=== PATIENT | female | born 1980 | race Caucasian/White ===

== ENCOUNTER 2023-01-19 18:48 | Emergency (ER) | payer OTHER, SELFPAY ==
[2023-01-19 18:53] VITALS: BP 160/110; PULSE 111; RESP 20; TEMP 36.8; O2SAT 97; BMI 50.0
[2023-01-19 19:27] LABS: Bilirubin Urine NEGATIVE (NEGATIVE); Blood Urine SMALL (NEGATIVE); Clarity Urine CLEAR (CLEAR); Color Urine LT. YELLOW (YELLOW); Glucose Urine UA NEGATIVE (NEGATIVE); Ketones Urine NEGATIVE (NEGATIVE); Leukocyte Esterase Urine NEGATIVE (NEGATIVE); Nitrite Urine NEGATIVE (NEGATIVE); Protein Urine TRACE mg/dL (NEG/TRACE); Urobilinogen Urine 0.2 EU/dL (0.2-1.0)
[2023-01-19 19:29] LABS: Basophils Absolute Auto 0.1 10^3/uL (0.0-0.1); Basophils Percent Auto 0.7 % (0.2-2.0); Eosinophils Absolute Auto 0.2 10^3/uL (0.0-0.7); Eosinophils Percent Auto 1.6 % (0.9-7.0); Hematocrit 39.3 % (36.0-48.0); Immature Granulocytes Abs Auto 0.03 10^3/uL (0.00-0.03); Immature Granulocytes Pct Auto 0.3 % (0.0-0.5); Lymphocytes Absolute Auto 2.1 10^3/uL (1.2-3.8); Lymphocytes Percent Auto 20.2 % (20.5-60.0); Mean Corpuscular HGB Conc 33.1 g/dL (29.9-35.2); Mean Corpuscular Hemoglobin 30.9 pg (26.7-34.0); Mean Corpuscular Volume 93.3 fL (81.0-99.0); Mean Platelet Volume 10.1 fL (9.5-13.5); Monocytes Absolute Auto 1.1 10^3/uL (0.3-0.8); Neutrophils Absolute Auto 7.2 10^3/uL (1.4-6.5); Neutrophils Percent Auto 67.2 % (43.0-75.0); Platelet Count 263 10^3/uL (150-450); Red Blood Count 4.21 10^6/uL (4.20-5.40); Red Cell Distribution Width 12.2 % (11.0-15.0); White Blood Count 10.6 10^3/uL (4.0-11.0)
--- NOTE | 2023-01-19 19:33 | CT_ITS ---
[facility] [id number] Patient Name: ZAYRA LYNN MRN: [id number] date: 1980 Sex: F Assigned Patient Location: ER Current Patient Location: ER Accession/Order Number: [id number] Exam Date: 01/19/2023 20:15 Report Date: 01/19/2023 21:09 At the request of: ARCELIA VARGAS Procedure: CT abdomen pelvis wo con CT ABDOMEN/PELVIS WITHOUT IV CONTRAST. INDICATION: left back side pain COMPARISON: There are no other studies available for comparison. TECHNIQUE: Contiguous axial images were obtained from the lung bases to the pelvic floor without intravenous or oral contrast. Coronal and sagittal reformations are provided. FINDINGS: LOWER LUNGS: Clear. LIVER/BILIARY TREE: No discrete lesion. No intrahepatic ductal dilatation. GALLBLADDER: No significant gallbladder wall thickening. No radiopaque stone. CBD: Normal CBD. SPLEEN: Normal in size. PANCREAS: No appreciable peripancreatic fluid. No pancreatic ductal dilatation. No discrete lesion. ADRENALS: Normal. KIDNEYS: No hydronephrosis. There are bilateral parapelvic cysts. No radiopaque calculus. STOMACH AND BOWEL: Stomach is unremarkable. No dilated bowel loops. No bowel wall thickening. APPENDIX: Normal appendix. PERITONEAL CAVITY: No fluid. No fat stranding. ABDOMINAL WALL: No subcutaneous stranding. No subcutaneous fluid collection. LYMPH NODES: No mesenteric or retroperitoneal lymphadenopathy by CT criteria. ABDOMINAL AORTA: No aneurysm. PELVIS: No acute abnormality. MUSCULOSKELETAL: No acute osseous abnormality. CT/CT abdomen pelvis wo con IMPRESSION: No acute abnormality in the abdomen or pelvis. Electronically authenticated by: LETICIA WEISS Date: 01/19/2023 21:09
[2023-01-19 19:36] LABS: Urine Microscopic Indicated YES
--- NOTE | 2023-01-19 19:37 | ED_ITS ---
HPI - General Adult General Chief complaint: Abdominal Pain Stated complaint: BACK PAIN Time Seen by Provider: 01/19/23 19:21 Source: patient Mode of arrival: walk-in Limitations: no limitations History of Present Illness HPI narrative: Patient is a 48-year-old female who is presenting to the Emergency Room today with chief complaint of severe left lower back pain that radiating to her left flank into left lower quadrant and also down into her left hip and down to left lateral thigh. Patient has a history kidney stone, she passed one kidney stone back in 2014. Patient has had nausea but no vomiting. Patient's pain started getting worse yesterday but much worse this morning. Patient's ex- is at bedside. Patient's had no heavy lifting, twisting or turning over the weekend. She has no fever chills. No chest pain or shortness of breath. Patient looks very uncomfortable. Patient was brought to the Emergency Room by her ex-, he is driving home. Patient's having urinary frequency and urgency, no burning. No vaginal bleeding. She had a hysterectomy. Patient has no other acute complaints at this time. Patient cannot get a comfortable position. . All systems are negative except as noted/marked. All systems reviewed and otherwise negative. . Nurses note and vital signs reviewed and patient is not hypoxic. General: The patient appears well and in no apparent distress. Patient is resting comfortably on cart. Patient is not toxic, lethargic, or listless Skin: Warm, dry, no pallor noted. There is no rash noted. No petechiae, purpura. Head: Normocephalic, atraumatic Eye: Normal conjunctiva, no drainage, EOMI. PERRL Ears, Nose, Mouth, and Throat: oral mucosa is moist. Nares patent. Mouth without vesicles. Cardiovascular: Regular Rate and Rhythm, no murmur, gallop, rub Respiratory: Patient is in no distress, no accessory muscle use, lungs are clear to auscultation, no wheezing, rales or rhonchi Back: Patient had moderate to severe tenderness to palpation to the soft tissue to left paralumbar area, no true CVA tenderness palpation, moderate tenderness to palpation to left piriformis muscle, Patient has no right-sided paralumbar tenderness to palpation, the rest of her back is non-tender, no CVA tenderness bilaterally to percussion. No CT LS midline pain. Negative straight leg raising test bilateral. Patient has full range of motion of her left hip without causin g any left lower back pain. GI: soft, obese, Mild left lower quadrant tenderness to palpation, moderate left flank tenderness to palpation, otherwise no peritoneal signs, no other tenderness to palpation, no masses appreciated. No rebound, guarding, or rigidity noted. No flank pain bilateral, No distention. Musculoskeletal: Patient has full range of motion of all of the extremities, no motor, sensory, or focal neurological deficits Neurological: A&O x3, normal speech. Psychiatric: Cooperative Related Data Home Medications Medication Instructions Recorded Confirmed No Known Home Medications 01/19/23 01/19/23 Previous Rx's Medication Instructions Recorded hydrocodone 5 mg-acetaminophen 325 1 tab PO Q4H PRN pain #10 tabs 01/19/23 mg tablet methocarbamol 500 mg tablet 500 mg PO Q8H PRN muscle pain #10 01/19/23 tabs methylprednisolone 4 mg tablets in 4 mg PO DAILY 7 days #7 ea 01/19/23 a dose pack (Medrol (Balwinder)) naproxen 500 mg tablet,delayed 500 mg PO BID #20 tabs 01/19/23 release (EC-Naprosyn) Allergies Allergy/AdvReac Type Severity Reaction Status Date / Time Penicillins Allergy Severe icthy Verified 01/19/23 18:53 Sulfa (Sulfonamide Allergy Severe Anaphylaxis Verified 01/19/23 18:53 Antibiotics) PFSH PFS Social History Smoking status: Light tobacco smoker Exam Constitutional Vital Signs, click to edit/add: Last Vital Signs Temp 98.3 F 01/19/23 18:53 Pulse 85 01/19/23 20:46 Resp 20 01/19/23 18:53 BP 123/85 01/19/23 20:30 Pulse Ox 94 L 01/19/23 21:16 O2 Del Method Room Air 01/19/23 21:16 Course Vital Signs Vital signs: Vital Signs Temperature 98.3 F 01/19/23 18:53 Pulse Rate 111 H 01/19/23 18:53 Respiratory Rate 20 01/19/23 18:53 Blood Pressure 160/110 H 01/19/23 18:53 Pulse Oximetry 97 01/19/23 18:53 Oxygen Delivery Method Room Air 01/19/23 18:53 Temperature 98.3 F 01/19/23 18:53 Pulse Rate 85 11/13/23 20:46 Respiratory Rate 20 01/19/23 18:53 Blood Pressure 123/85 01/19/23 20:30 Pulse Oximetry 94 L 01/19/23 21:16 Oxygen Delivery Method Room Air 01/19/23 21:16 Medical Decision Making MDM Narrative Medical decision making narrative: Patient's urine, lab work, CT of the abdomen and pelvis showed no acute findings. Patient had some mild hypoxia after 1 mg of Dilaudid was given. Patient and her ex- at bedside state that she has been sensitive to narcotics in the past. However for patient's weight, she was still given a low dose of Dilaudid. She was placed on 2 L of nasal cannula, continuous pulse oximetry until she was discharged. Patient recovered, and was normal over 94 percent at discharge. Patient will be sent home with Naprosyn, Firestone, Robaxin, Medrol Dosepak. Patient will follow up with PCP for further evaluation and referral to physical therapy if needed. Education on lumbar pain, sciatica, lumbar radiculopathy was done at bedside and on discharge paperwork. No urinary tract infection, kidney stone, pyelonephritis, or any other acute findings on CT. Patient has had lumbar pain and sciatica pain in the past. Patient's pain has improved. Education on sciatica and lumbar radiculopathy has been done several times during history and physical and at discharge. Lab Data Lab results reviewed: Yes I reviewed the patient's lab results Labs: Lab Results 01/19/23 01/19/23 Range/Units 19:00 19:20 WBC 10.6 (4.0-11.0) 10^3/uL RBC 4.21 (4.20-5.40) 10^6/uL Hgb 13.0 (12.0-16.0) g/dL Hct 39.3 (36.0-48.0) % MCV 93.3 (81.0-99.0) fL MCH 30.9 (26.7-34.0) pg MCHC 33.1 (29.9-35.2) g/dL RDW 12.2 (11.0-15.0) % Plt Count 263 (150-450) 10^3/uL MPV 10.1 (9.5-13.5) fL Neut % (Auto) 67.2 (43.0-75.0) % Lymph % (Auto) 20.2 L (20.5-60.0) % [place] % (Auto) 10.0 (1.7-12.0) % Eos % (Auto) 1.6 (0.9-7.0) % Baso % (Auto) 0.7 (0.2-2.0) % Neut # (Auto) 7.2 H (1.4-6.5) 10^3/uL Lymph # (Auto) 2.1 (1.2-3.8) 10^3/uL [place] # (Auto) 1.1 H (0.3-0.8) 10^3/uL Eos # (Auto) 0.2 (0.0-0.7) 10^3/uL Baso # (Auto) 0.1 (0.0-0.1) 10^3/uL Abs Immat Gran (auto) 0.03 (0.00-0.03) 10^3/uL Imm/Tot Granulo (auto) 0.3 (0.0-0.5) % Sodium 138 (136-145) mmol/L Potassium 3.6 (3.5-5.1) mmol/L Chloride 102 (98-107) mmol/L Carbon Dioxide 29.2 (21.0-32.0) mmol/L Anion Gap 10.4 BUN 10.0 (7.0-18.0) mg/dL Creatinine 0.97 (0.55-1.02) mg/dL Est GFR ( Amer) >60 (>=60) Est GFR (Non-Af Amer) >60 (>=60) BUN/Creatinine Ratio 10.3 Glucose 117 H (74-106) mg/dL Calcium 8.7 (8.5-10.1) mg/dL Total Bilirubin 0.6 (0.2-1.0) mg/dL AST 13 L (15-37) U/L ALT 34 (14-59) U/L Alkaline Phosphatase 66 (46-116) U/L Total Protein 7.6 (6.4-8.2) g/dL Albumin 3.5 (3.4-5.0) g/dL Globulin 4.1 g/dL Albumin/Globulin Ratio 0.9 Lipase 19.0 (16.0-77.0) U/L Urine Color Lt. yellow (YELLOW) Urine Clarity Clear (CLEAR) Urine pH 6.0 (5.0-9.0) Ur Specific [place] 1.010 (1.005-1.025) Urine Protein Trace (NEG/TRACE) mg/dL Urine Glucose (UA) Negative (NEGATIVE) mg/dL Urine Ketones Negative (NEGATIVE) mg/dL Urine Occult Blood Small A (NEGATIVE) Urine Nitrite Negative (NEGATIVE) Urine Bilirubin Negative (NEGATIVE) Urine Urobilinogen 0.2 (0.2-1.0) EU/dL Ur Leukocyte Esterase Negative (NEGATIVE) Urine RBC 0-2 (0-2) #/HPF Urine WBC 0-2 A (NONE SEEN) #/HPF Ur Squamous Epith Cells Few A (NONE/RARE) #/LPF Urine Crystals None seen (None Seen) #/HPF Urine Bacteria None seen (NONE SEEN) #/HPF Urine Casts None seen (NONE SEEN) #/LPF Urine Mucus None seen (NONE SEEN) Ur Culture Indicated? No Urine HCG, Qual Negative (NEGATIVE) Discharge Plan Discharge Chief Complaint: Abdominal Pain Clinical Impression: Acute left lumbar radiculopathy, Lumbar pain with radiation down left leg Patient Disposition: Home, Self-Care Condition: Fair Prescriptions / Home Meds: New hydrocodone-acetaminophen 5-325 mg tablet 1 tab PO Q4H PRN (Reason: pain) Qty: 10 0RF methocarbamol 500 mg tablet 500 mg PO Q8H PRN (Reason: muscle pain) Qty: 10 0RF methylprednisolone [Medrol (Balwinder)] 4 mg tablets,dose pack 4 mg PO DAILY 7 Days Qty: 7 0RF Rx Instructions: as directed naproxen [EC-Naprosyn] 500 mg tablet,delayed release (DR/EC) 500 mg PO BID Qty: 20 0RF No Action No Known Home Medications Instructions: Sciatica (ED), Lumbar Radiculopathy (ED), Lower Back Exercises (ED) Additional Instructions: Use ice 20 minutes on, 20 minutes off. Do not use heat. Sciatica lumbar stretching exercises as discussed at bedside and on discharge paperwork Start steroids tomorrow, finished the course. Use pain medication and muscle relaxers as needed. Ice and stretching will help. Your PCP may have referred to physical therapy as well. critical care physician can help as well. Stand Alone Forms: Portal Instructions Referrals: Physician,Non-Staff, MD [Primary Care Provider] - 1 week
[2023-01-19 19:40] LABS: Bacteria Urine NONE SEEN #/HPF (NONE SEEN); Crystals Seen? None Seen #/HPF (None Seen); Mucus Urine NONE SEEN (NONE SEEN); RBC Urine 0-2 #/HPF (0-2); Squamous Epithelial Cell Urine FEW #/LPF (NONE/RARE); WBC Urine 0-2 #/HPF (NONE SEEN)
[2023-01-19 19:41] LABS: Cast Seen? NONE SEEN #/LPF (NONE SEEN); HCG Qualitative Urine* NEGATIVE (NEGATIVE); Urine Culture Indicated NO
[2023-01-19 19:43] LABS: Alanine Aminotransferase 34 U/L (14-59); Albumin Globulin Ratio 0.9; Albumin Level 3.5 g/dL (3.4-5.0); Alkaline Phosphatase 66 U/L (46-116); Anion Gap 10.4; Aspartate Amino Transferase 13 U/L (15-37); BUN Creatinine Ratio 10.3; Bilirubin Total 0.6 mg/dL (0.2-1.0); Calcium 8.7 mg/dL (8.5-10.1); Carbon Dioxide 29.2 mmol/L (21.0-32.0); Chloride 102 mmol/L (98-107); Estimated GFR (African America >60 (>=60); Estimated GFR (Non-African Ame >60 (>=60); Globulin 4.1 g/dL; Glucose 117 mg/dL (74-106); Potassium 3.6 mmol/L (3.5-5.1); Sodium 138 mmol/L (136-145); Total Protein 7.6 g/dL (6.4-8.2)
[2023-01-19] MEDS: 0.9 % SODIUM CHLORIDE 1,000 ML 999 ML IV (19:52)
[2023-01-19] MEDS: ONDANSETRON PF 4 MG/2 ML VIAL IV (19:52)
[2023-01-19] MEDS: HYDROMORPHONE HCL 1 MG/ML CARTRIDGE IV (19:52)
[2023-01-19] MEDS: KETOROLAC TROMETHAMINE 30 MG/ML VIAL 15 MG IVP (19:52)
[2023-01-19 20:02] VITALS: BP 115/74; O2SAT 97
[2023-01-19 20:15] VITALS: O2SAT 96
[2023-01-19 20:30] VITALS: BP 123/85; O2SAT 96
--- NOTE | 2023-01-19 20:35 | PC.NURSE ---
patient o2 saturation dropped to 84% following pain medication administration. patient placed on 2L nc and quickly recovered to 96%
[2023-01-19 20:46] VITALS: PULSE 85
[2023-01-19 21:16] VITALS: O2SAT 94
== END 2023-01-19 22:00 | disposition home or self-care (01) ==
PROVIDERS: Emergency Provider Emergency Medicine
DX: M54.16 Radiculopathy, lumbar region (principal); Z90.710 Acquired absence of both cervix and uterus; F17.210 Nicotine dependence, cigarettes, uncomplicated
CPT/HCPCS: 36415; 74176; 80053; 81001; 83690; 84703; 85025; 96374; 96375; 99285; J1170

== ENCOUNTER 2024-05-06 15:45 | Emergency (ER) | payer OTHER, SELFPAY ==
[2024-05-06 15:50] VITALS: BP 120/82; PULSE 96; TEMP 38.3; O2SAT 95; BMI 57.6
--- OUTSIDE RECORDS SUMMARY | 2024-05-06 15:53 | XMS_ITS | CCD ---
Author Organization [facility] Inform ion Partnership [facility] Care Team Providers Care [employer] Name Role Phone JOHNNY JEREZ Consulting Unavailable JOHNNY JEREZ Attending Unavailable JOHNNY JEREZ Admitting Unavailable DO Tammy Patel Primary Care Provider JANA Esposito Attending Provider Yovana Esposito Admitting Unavailable Yovana Esposito Attending Unavailable Tammy Patel Primary Care Unavailable Jorge José DO, George Robert Primary Care Provi jeannie Henna Valadez DO Unavailable Jag Patel DO Primary Care Provider YOVANA ESPOSITO Attending Unavailable YOVANA ESPOSITO Referring Unavailable JAG PATLE Referring Unavailable JAQUELIN MATA Attending Unavailable JAG PATEL Referring Unavailable YOVANA ESPOSITO Attending Unavailable Allergies Allergy Classification Reported Allergen(s) Allergy Type Date of Onset Reaction(s) Facility (2 sources) HYDROmorphone; Translations: [hydromorphone] Drug Allergy 9 Dizziness [facility] (2 sources) sulfiSOXAZOLE; Translations: [sulfisoxazole] Drug Allergy 9 Anaphylaxis [facility] (3 sources) Sulfonamides (Antibiotic); Translations: [Sulfa (Sulfonamide Antibiotics)] Allergy to substance [address] [facility] (2 sources) erythromycin base; Translations: [erythromycin base] Allergy to substance 9 [facility] (10 sources) Latex Drug Allergy 0 [facility] (12 sources) Sulfonamides (Antibiotic) Propensity to adverse reactions 3 [facility] Work Phone: (9 sources) Penicillins Propensity to adverse reactions 5 GI intolerance [facility] Medications Current Medications Medication Drug Class(es) Dates Sig (Normalized) Sig (Original) acetaminophen 325 mg / HYDROcodone bitartrate 5 mg oral tablet (1 source) Opioid Agonist Start: 01-13-2019 take 1 tablet by mouth every four to six hours Hydrocodone-Acetamin ophen (Merced) 5-325 mg Tablet Active 1 TAB PO EVERY 4-6 HOURS 7 3 January 13, 2019 12:00am amoxicillin 875 mg / clavulanate 125 mg oral tablet (5 sources) Penicillin-class Antibacterial Start: 03-18-2024 End: 03-28-2024 take 1 tablet by mouth in the morning amoxicillin-clavulan ate (Augmentin) 875-125 MG tablet Indications: Acute left otitis media Take 1 tablet (875 mg) by mouth in the morning and 1 tablet (875 mg) before bedtime. Do all this for 10 days. 20 tablet 03/18/2024 03/28/2024 Active atorvastatin 20 mg oral tablet (9 sources) HMG-CoA Reductase Inhibitor Start: 03-21-2024 take 1 tablet by mouth once daily atorvastatin (Lipitor) 20 MG tablet Indications: Mixed hyperlipidemia (CMS/HCC) Take 1 tablet (20 mg) by mouth Daily 30 tablet 11 03/21/2024 Active cyclobenzaprine hydrochloride 10 mg oral tablet (2 sources) Muscle Relaxant Start: 05-05-2024 cyclobenzaprine (Flexeril) 10 MG tablet Indications: Spasm Take 1 tablet (10 mg) by mouth 3 (three) times a day as needed for muscle spasms (q8hrs) 20 tablet 05/05/2024 Active Start: 08-24-2019 take 1 tablet by julian th every eight hours as needed cyclobenzaprine (FLEXERIL) 5 mg tablet Take 1 tablet by mouth three times daily as needed. 0 08/24/2019 Active Comment on above: Take 1 tablet by julian th three times daily as needed. furosemide 20 mg oral tablet (4 sources) Loop Diuretic Start: 5 furosemide (Lasix) 20 MG tablet Indications: Peripheral edema Take 1 tablet (20 mg) by mouth Daily as needed (q24hrs) 20 tablet 05/02/2024 Active levothyroxine sodium 0.075 mg oral tablet (10 sources) l-Thyroxine Start: take 1 tablet by mouth once daily levothyroxine (Synthroid, Levoxyl) 75 MCG tablet Indications: Hyperthyroidism (CMS/HCC) Take 1 tablet (75 mcg) by mouth Daily 30 tablet 3 05/05/2024 Active Start: 05-05-2024 take 1 tablet by julian th once daily levothyroxine (Synthroid, Levoxyl) 75 MCG tablet Indications: Hyperthyroidism (CMS/HCC) Take 1 tablet (75 mcg) by mouth Daily 30 tablet 3 05/05/2024 Active Start: 03-21-2024 End: 05-05-2024 take 1 tablet by mouth once daily levothyroxine (Synthroid, Levoxyl) 50 MCG tablet Indications: Hyperthyroidism (CMS/HCC) Take 1 tablet (50 mcg) by mouth Daily 30 tablet 11 03/21/2024 05/05/2024 Discontinued (Reorder) tamsulosin hydrochloride 0.4 mg oral capsule (1 source) alpha-Adrenergic Radhika Start: 01-13-2019 take 1 capsule by mouth once daily Tamsulosin (Flomax) 0.4 mg capsule Active 0.4 MG PO Daily January 13, 2019 12:00am Completed/Discontinued Medications Medication Drug Class(es) Dates Sig (Normalized) Sig (Original) azithromycin 250 mg oral tablet (7 sources) Macrolide Antimicrobial Start: 03-21-2024 End: 05-02-2024 azithromycin (Zithromax) 250 MG tablet Indications: Acute left otitis media Take 2 tablets on day 1, then take 1 tablet for 4 days by mouth 6 tablet 03/21/2024 05/02/2024 Discontinued 12 hr dextromethorphan hydrobromide 60 mg / guaiFENesin 1200 mg extended release oral tablet (3 sources) Uncompetitive F-qygjke-H-aspartat e Receptor Antagonist, Sigma-1 Agonist Start: 02-11-2023 End: 03-18-2024 dextromethorphan- guaiFENesin (MUCINEX DM MAX STRENGTH) 60-1200 MG 12 hr tablet Indications: URI with cough and congestion Take 1 tablet by mouth every 12 (twelve) hours if needed (BID) 20 tablet 02/11/2023 03/18/2024 Discontinued (Therapy completed) fluticasone propionate 0.05 mg/actuat metered dose nasal spray (10 sources) Corticosteroid Start: 03-21-2024 End: 05-02-2024 take 1-2 spray(s) nasal route once daily fluticasone (Flonase) 50 MCG/ACT nasal spray Indications: Acute left otitis media Administer 1-2 sprays into each nostril Daily Shake gently. Before first use, prime pump. After use, clean tip and replace cap 16 g 3 03/21/2024 05/02/2024 Discontinued Start: 02-11-2023 End: 03-18-2024 take 1-2 spray(s) nasal route in the morning fluticasone (Flonase) 50 MCG/ACT nasal spray Indications: URI with cough and congestion Administer 1-2 sprays into each nostril in the morning. Shake gently. Before first use, prime pump. After use, clean tip and replace cap. 16 g 02/11/2023 03/18/2024 Discontinued (Therapy completed) ketorolac tromethamine 10 mg oral tablet (1 source) Nonsteroidal Anti-inflammatory Drug, Cyclooxygenase Inhibitor Start: 09-08-2019 take 1 tablet by mouth every eight hours as needed ketorolac (TORADOL) 10 mg tablet Indications: Post-operative state Take 1 tablet by mouth every 8 hours as needed. 15 tablet 0 09/08/2019 Active Comment on above: Take 1 tablet by julian th every 8 hours as needed. methocarbamol 500 mg oral tablet (3 sources) Muscle Relaxant Start: 01-20-2023 End: 03-18-2024 take 1 tablet by mouth every six hours methocarbamol (Robaxin) 500 MG tablet Take 500 mg by mouth every 6 (six) hours 01/20/2023 03/18/2024 Discontinued (Therapy completed) naproxen 500 mg delayed release oral tablet (4 sources) Nonsteroidal Anti-inflammatory Drug Start: 01-20-2023 End: 03-18-2024 take 1 tablet by mouth in the morning naproxen (EC Naprosyn) 500 MG EC tablet Take 500 mg by mouth in the morning and 500 mg before bedtime. 01/20/2023 03/18/2024 Discontinued (Therapy completed) Start: 01-13-2019 take 1 tablet by julian th every twelve hours at mealtime Naproxen (Naprosyn) 500 mg Tablet Active 500 MG PO Q12H January 13, 2019 12:00am administer with food or milk Nirmatrelvir&Ritonavir 300/1 00 (Paxlovid, 300/100,) 20 x 150 MG & 10 x 100MG tablet therapy pack (3 sources) Start: 02-12-2023 End: 03-18-2024 Nirmatrelvir&Ritonavir 300/1 00 (Paxlovid, 300/100,) 20 x 150 MG & 10 x 100MG tablet therapy pack Indications: COVID-19 Take 1 Package by mouth See administration instructions 1 each 02/12/2023 03/18/2024 Discontinued (Therapy completed) Start: 02-12-2023 Nirmatrelvir&R itonavir 300/100 (Paxlovid, 300/100,) 20 x 150 MG & 10 x 100MG tablet therapy pack Indications: COVID-19 Take 1 Package by mouth See administration instructions 1 each 02/12/2023 Active ondansetron 4 mg oral tablet (8 sources) Serotonin-3 Receptor Antagonist Start: 03-21-2024 End: 05-02-2024 take 1 tablet by mouth every eight hours as needed for nausea and vomiting and nausea and nausea ondansetron (Zofran) 4 MG tablet Indications: Nausea Take 1 tablet (4 mg) by mouth every 8 (eight) hours if needed for nausea or vomiting 20 tablet 03/21/2024 05/02/2024 Discontinued Start: 01-13-2019 Ondansetron Ac tive 4 MG PO every 6 to 8 hours January 13, 2019 12:00am predniSONE 20 mg oral tablet (3 sources) Start: 02-11-2023 End: 03-18-2024 predniSONE (Deltasone) 20 MG tablet Indications: URI with cough and congestion Take 3 tablets for 2 days, then take 2 tablets for 2 days, then take 1 tablet for 2 days by mouth 12 tablet 02/11/2023 03/18/2024 Discontinued (Therapy completed) pseudoephedrine hydrochloride 60 mg oral tablet (7 sources) alpha-Adrener gic Agonist Start: 03-21-2024 End: 05-02-2024 take 1 tablet by mouth every six hours for congestion pseudoephedrine (Sudafed) 60 MG tablet Indications: Acute left otitis media Take 1 tablet (60 mg) by mouth every 6 (six) hours if needed for congestion 30 tablet 03/21/2024 05/02/2024 Discontinued Problems Problem Classification Problem Date Documented Da te Episodic/Chronic Calculus of urinary tract (1 source) Ureteric stone; Translations: [Calculus of ureter] 01-13-2019 Episodic Disorders of lipid metabolism (2 sources) Mixed hyperlipidemia; Translations: [Mixed hyperlipidemia] 03-21-2024 Chronic Immunizations and screening for infectious disease (4 sources) Contact with and (suspected) exposure to other viral communicable diseases; Translations: [CONTCT EXPS OTH VIRL COMMUNICABL DZ] Onset: 01-13-2020 Episodic Nausea and vomiting (2 sources) Nausea; Translations: [Nausea] 03-21-2024 Episodic Other connective tissue disease (1 source) Spasm; Translations: [Cramp and spasm] 05-05-2024 Episodic Other nutritional; endocrine; and metabolic disorders (1 source) Morbid obesity; Translations: [Morbid (severe) obesity due to excess calories] Onset: 08-24-2019 08-24-2019 Chronic Other nutritional; endocrine; and metabolic disorders (1 source) Body mass index 40+ - severely obese; Translations: [Morbid (severe) obesity due to excess calories] Onset: 10-07-2019 10-07-2019 Chronic Other nutritional; endocrine; and metabolic disorders (2 sources) Weight increased; Translations: [Abnormal weight gain] 03-18-2024 Episodic Other screening for suspected conditions (not mental disorders or infectious disease) (5 sources) Patient encounter status; Translations: [Encounter for screening mammogram for malignant neoplasm of breast] 05-21-2023 Episodic Other upper respiratory infections (3 sources) Acute upper respiratory infection, unspecified; Translations: [Sore throat symptom] Onset: 01-17-2020 03-18-2024 Episodic Otitis media and related conditions (4 sources) Acute left otitis media; Translations: [Otitis media, unspecified, left ear] 03-18-2024 Episodic Residual codes; unclassified (2 sources) Peripheral edema; Translations: [Localized edema] 05-02-2024 Episodic Thyroid disorders (5 sources) Hyperthyroidism; Translations: [Thyrotoxicosis, unspecified without thyrotoxic crisis or storm] 03-21-2024 Chronic Viral infection (1 source) COVID-19; Translations: [COVID-19] Onset: 02-11-2023 Results Test Name Value Interpretation Reference Range Facility Laboratory - Chemistry and C hemistry - challengeon 05-03-2024 Free T4 [Mass/Vol] 0.95 ng/dL 0.82 - 1. 77 ng/dL [facility] TSH Qn 8.28 m[IU]/L High [facility] No Panel Informationon 05-03 Interpretation and review of laboratory results Abnormal [facility] Performed at: 01 - [address] [id number] Car Supervisor: Scout De La Torre PhD, Phone: [phone] [facility] 05-02-2024 US THYROID EXAM: Thyroid Ultrasound. REASON FOR EXAM: Hypothyroidism. TECHNIQUE: Ultrasound of the thyroid and lower neck was performed, with color flow Doppler. COMPARISON: None. FINDINGS: Right lobe: Normal size with heterogeneous parenchymal echogenicity. No evidence of any mass, cyst or shadowing calcification. Left lobe: Normal size with heterogeneous parenchymal echogenicity. No evidence of any mass, cyst or shadowing calcification. Isthmus: Normal size with heterogeneous parenchymal echogenicity. No evidence of any mass, cyst or shadowing calcification. Lymph nodes: Negative for lymphadenopathy. Measurements: Right Lobe: 4.3 x 1.8 x 1.8 cm Left Lobe: 4.6 x 1.4 x 1.7 cm Isthmus: 0.85 cm IMPRESSION: Heterogeneous appearance of the thyroid which may reflect goiter, possibly thyroiditis. No measurable nodules. TI-RADS: 1 RECOMMENDATION: Clinical follow-up. Reference: ACR white paper 2017. Followup: TR3 lesion: Thyroid US at 1, 3 and 5 years. TR4 lesion: Thyroid US at 1, 2, 3 and 5 years. TR5 lesion: Thyroid ultrasound every year for up to 5 years. *This report is generated using voice recognition reporting (PharmaIN). On occasion Krik[employer] erroneously drops words from the report or replaces the spoken word with similar sounding words. Please call with any questions/concerns regarding this report.* Dictated and transcribed 05/03/2024/tm This report has been electronically signed and approved by the interpreting radiologist. Normal Not Available Laboratory - Microbiology an d Antimicrobial susceptibilityon 03-18-2024 SARS-CoV-2 (COVID-19) RNA PAM+probe Ql (Unsp spec) Negative [facility] S. pyogenes Ag Ql (Throat) Negative Negative, None Detected [facility] No Panel Informationon 03-18 FLU A Negative [facility] FLU B Negative [facility] Interpretation and review of laboratory results Normal [facility] Interpretation and review of laboratory results Normal [facility] BI MAMMOGRAM SCREENING TOMOS YNTHESIS BILATERALon 06-26-2023 BI MAMMOGRAM SCREENING TOMOSYNTHESIS BILATERAL This is a summary report. The complete report is available in the patient's medical record. If you cannot access the medical record, please contact the sending organization for a detailed fax or copy. EXAMINATION: BI MAMMOGRAM SCREENING TOMOSYNTHESIS BILATERAL CLINICAL HISTORY:screening for breast cancer COMPARISON: There are no previous mammograms available for comparison. RESULT: Digital mammography and 3D tomosynthesis of bilateral breasts was performed. Density: Almost entirely fatty [1] Typically benign calcifications. There is no suspicious mass, asymmetry, architectural distortion, or calcification IMPRESSION: BIRADS 2 - Benign Follow-up: Routine Screening Mamm Board Certified Radiologists. Accredited by the ACR and FDA. MAMMOGRAPHY IS VERY IMPORTANT TO YOUR HEALTH. THE CITIZEN OF [place] [employer] GUIDELINES RECOMMEND THAT WOMEN 40 YEARS OF AGE AND OLDER SHOULD HAVE A MAMMOGRAM EVERY YEAR. A REMINDER LETTER WILL BE SENT AT THE APPROPRIATE TIME. THIS FACILITY UTILIZES A REMINDER SYSTEM TO ENSURE ALL PATIENTS RECEIVE REMINDER NOTIFICATIONS AT THE APPROPRIATE TIME BASED ON THE RECOMMENDATIONS OF THIS EXAM. THIS INCLUDES REMINDERS FOR ROUTINE SCREENING MAMMOGRAMS, DIAGNOSTIC MAMMOGRAMS IN WHICH THE PATIENT IS ASKED TO RETURN FOR ADDITIONAL VIEWS, OR OTHER BREAST IMAGING INTERVENTIONS WHEN APPROPRIATE. THE PATIENT WILL BE PLACED IN THE APPROPRIATE REMINDER SYSTEM INCLUDING A REMINDER AT THE APPROPRIATE TIME FOR ANY PENDING ADDITIONAL VIEWS. TRANSCRIBED BY: ELECTRONICALLY SIGNED BY: John Ellison MD Normal Not Available [employer] Detectedon 3 [employer] Detected Detected Critically abnormal Not Detecte [facility] Comment on above: Result Comment: This is a duplicate RP2.1 COVID (PCR) result to be used for statistical tracking purpose only. PERFORMED BY: [address] [place] [address] PATHOLOGIST RETAIL LEASING AGENT JIANLAN SUN M.D. Performed By: #### R RANDY PANEL UPP., BIOFIRECOVDET #### [facility] [address] COVID-19 Detected/Not Detect edOrdered By: Yovana Esposito on 02-11-2023 SARS-CoV-2 (COVID-19) RNA PAM+non-probe Ql (Nph) Detected Not Detecte [facility] Comment on above: This is a duplicate RP2.1 COVID (PCR) result to be used for statistical tracking purpose only. Respiratory (Upper) Panel, P CRon 02-11-2023 Respiratory (Upper) Panel, PCR Adenovirus Not detected Bordetella parapertussis Not detected Chlamydia pneumoniae Not detected Coronavirus 229E Not detected Coronavirus HKU1 Not detected Coronavirus NL63 Not detected Coronavirus OC43 Not detected Influenza A Not detected Influenza B Not detected Human Metapneumovirus Not detected Mycoplasma pneumoniae Not detected Parainfluenza Virus 1 Not detected Parainfluenza Virus 2 Not detected Parainfluenza Virus 3 Not detected Parainfluenza Virus 4 Not detected Bordetella pertussis-ptxP Not detected Human Rhino/Enterovirus Not detected Resp. Syncytial Virus Not detected COVID19 Blank Space COVID19 Det Results Detected results will only be called to COVID19 Det Results Providers for the following groups of patients: COVID19 Det Results Pre-Surgical Testing, Emergency Room, and Inpatients. COVID19 Blank Space COVID-19 Detected/Not Detected Detected Blank Space FLUA TEST INCLUDES Influenza A tests for the following clinically FLUA TEST INCLUDES significant subtypes: FLUA TEST INCLUDES - Influenza A FLUA TEST INCLUDES - Influenza A H1 FLUA TEST INCLUDES - Influenza A H1 2009 FLUA TEST INCLUDES - Influenza A H3 Blank Space PERFORMED BY: [facility] [address] [place] [address] PATHOLOGIST RETAIL LEASING AGENT MICHELLE MANN M.D. Normal [facility] Comment on above: Performed By: #### R RANDY PANEL UPP., BIOFIRECOVDET #### [facility] [address] Respiratory pathogens DNA an d RNA panel - Nasopharynx by PAM with non-probe detectionOrdered By: Yovana Esposito on 02-11-2023 Respiratory pathogens DNA and RNA panel PAM+non-probe (Nph) [facility] COVID-19 PCRon 01-14-2020 SARS-CoV-2, PAM Not Detected Normal Not Detected [facility] Comment on above: Result Comment: This nucleic acid amplification test was developed and its performance characteristics determined by [employer]. Nucleic acid amplification tests include PCR and TMA. This test has not been FDA cleared or approved. This test has been authorized by FDA under an Emergency Use Authorization (EUA). This test is only authorized for the duration of time the declaration that circumstances exist justifying the authorization of the emergency use of in vitro diagnostic tests for detection of SARS-CoV-2 virus and/or diagnosis of COVID-19 infection under section 564(b)(1) of the Act, 21 U.S.C. 360bbb-3(b) (1), unless the authorization is terminated or revoked sooner. When diagnostic testing is negative, the possibility of a false negative result should be considered in the context of a patient's recent exposures and the presence of clinical signs and symptoms consistent with COVID-19. An individual without symptoms of COVID-19 and who is not shedding SARS-CoV-2 virus would expect to have a negative (not detected) result in this assay. Performed By: #### C VDPCR #### [facility] [address] [address] Delores Oliveira HISTORY PHYSICALon 0 HISTORY PHYSICAL HNO ID: [id number] Author: Chika Smith (Pa) Service: ? Author Type: Physician Clinical Rehabilitation Coordinator Type: HANDP Filed: 08/24/2019 2:07 PM Note Text: HISTORY AND PHYSICAL EXAMINATION SERVICE DATE: 08/24/2019 SERVICE TIME: 12:58 PM PRIMARY CARE PHYSICIAN: Jag Patel DO REASON FOR VISIT: Zayra Casas is a 39 year old female who is scheduled for LAPAROSCOPIC HYSTERECTOMY TOTAL FOR UTERUS 250 G OR LESS W/REMOVAL TUBE(S) AND/OR OVARY(S) at the request of Dr. Marte for consultation. My final recommendation will be communicated back to the requesting physician by way of shared medical record or letter. The patient has the following: ACTIVE PROBLEM LIST Morbid Obesity (Hcc) Subjective CHIEF COMPLAINT: endometriosis HPI: pt is a 39 year old female with c/o abdominal pain, low back pain and h/o heavy menses PAST MEDICAL HISTORY Diagnosis Date - Anemia - Kidney stone on left side 01/2019 PAST SURGICAL HISTORY Procedure Laterality Date - REMOVAL OF OVARY/TUBE(S) Left 01/2016 Salpingo-oophorectom y; laparotomy - SURGICAL EXTRACTION ERUPTED TOOTH 2000 wisdom teeth FAMILY HISTORY Problem Relation Age of Onset - Breast Cancer Mother - No Known Problems Father SOCIAL HISTORY: Social History Tobacco Use - Smoking status: Never Smoker - Smokeless tobacco: Never Used Substance Use Topics - Alcohol use: Yes Frequency: Monthly or less Drinks per session: 1 or 2 Binge frequency: Never Comment: couple drinks a year - Drug use: Never Prior to Admission medications as of 08/24/19 1314 Medication Sig Last Dose Taking cyclobenzaprine (FLEXERIL) 5 mg tablet Take 1 tablet by mouth three times daily as needed. No medication comments found. ALLERGIES Allergen Reactions - Latex, Natural Rubb* Hives Blisters - Sulfa (Sulfonamide * Hives REVIEW OF SYSTEMS: PAIN ASSESSMENT: General: No weight loss, malaise or fevers. Neuro: No history of TIA's, stroke, LEARNING MANAGER tumor, impaired sensorium, hemiplegia, paraplegia or quadraplegia. No neurological symptoms or problems. Respiratory: No history of current cough or dyspnea, or pneumonia in the past 6 weeks. No history of respiratory/pulmonar y symptoms or problems. Cardiovascular: Positive for: h/o murmur as infant, Negative for Recent MO, Angina, Arrhythmia, CAD, Chest Pain, CHF, HTN, PVD, DVT/PE GI: No history of GI symptoms or problems. No history of esophageal varices, recent ascites, or ETOH greater than 2 drinks per day. : No history of dysuria, frequency or incontinence,, stones or chronic kidney disease FISH AND WILDLIFE BIOLOGIST: See HPI : Denies, No LMP recorded. Patient has had an implant. Endocrine: No history of diabetes. Has not taken steroids within the past 30 days. No history of endocrinological symptoms or problems. Hematology: No history of bleeding or clotting disorder. Pt is not taking anti-coagulation or platelet medications. No history of hematological symptoms or problems. Oncology: No history of CA metastasis, chemo within 30 days, or radiotherapy within 90 days. Has not lost 10% of body wt in 6 months. No history of oncological symptoms or problems. Psych: No history of psychiatric symptoms or problems. Musculoskeletal: See HPI Skin: Negative for lesions, rash and itching. Objective PHYSICAL EXAM: VITALS: BP 145/95 Pulse 83 Temp (Src) 99.1 (Oral) Resp 18 Ht 5' 6 (1.68m) Wt 309 lb (140.2kg) SpO2 99% BMI 49.90 kg/(m2). General: Alert and oriented, No acute distress, Morbidly obese Skin: Normal color, no rash, no lesions. HEENT: EOM, pupils equal, round and reactive., No carotid bruits Cardiovascular: Normal S1 AND S2, no rubs, murmurs or gallops. No JVD. Pulse regular. Lungs: Normal breath sounds, no wheezes or crackles., No chest deformities or chest wall tenderness. Abdomen: Positive bowel sounds Extremities: No deformity, no edema or tenderness, no joint swelling or clubbing. Neurological: Normal cognition and motor skills. Gait normal. No weakness or sensory deficit. Pulses: Carotid and radial pulses normal +2. Diagnostic tests reviewed for today's visit: Lab Value Units Date High Low HB 12.4 g/dL 08/23/2019 15.5 11.5 HCT 38.6 % 08/23/2019 46.0 36.0 WBC 7.34 k/uL 08/23/2019 11.00 3.70 PLT 309 k/uL 08/23/2019 400 150 NA 139 mmol/L 08/23/2019 144 136 K 4.1 mmol/L 08/23/2019 5.1 3.7 GLUC 103 mg/dL 08/23/2019 99 74 BUN 11 mg/dL 08/23/2019 21 7 CREAT 0.70 mg/dL 08/23/2019 0.96 0.58 Lab Value Units Date High Low ABORHD B POSI* no uni* 08/23/2019 ABSCREEN NEG no uni* 08/23/2019 No results found for: HBA1C No new labs or tests Assessment/Plan Morbid obesity (HCC) Assessment: bmi is 49 METS: Take care of self; that is eating, dressing, bathing, using the toilet (2.75 METs) Walk a block or two on level ground (2.75 METs) Do moderate work around the house such as vacuuming, sweeping floors, or carrying in groceries (3.50 METs) Do yardwork, such as raking leaves, weeding,or pushing a power mower (4.50 METs) Climb a flight of stairs or walk up a hill (5.50 METs) Participate in moderate recreational activities, such as golf, bowling, dancing, doubles tennis, or throwing a baseball or football (6.00 METs) Do heavy work around the house, such as scrubbing floors, lifting or moving heavy furniture (8.00 METs) Run a short distance (8.00 METs) Patient denies any chest pain or undue shortness of breath with the above physical activity. ASA Class: 2 ANESTHESIA FINDINGS: Intubation History: No history of difficult intubation Significant Anesthesia Considerations: None Airway Exam: General: Morbid obesity Mallampati Score is CLASS I ULBT: Class I - Lower incisors can bite the upper lip above the robert line Neck: Normal appearance and function, Distance from hyoid to mentum during neck extension is at least 3 finger breaths, Short neck Mouth: Normal tongue size and Mouth opening greater than 2 finger breaths Dentition: Intact Airway History: No abnormal airway history STOP BANG Score: Criteria: Snoring BMI > 35 Neck circumference > 15.75 inches Score = 3 PLAN This patient is optimally prepared for surgery. CONSULTS: Patient does not require consults for optimization at this time. The Following Tests/Procedures Have Been Initiated: Labs not indicated per PACC protocol, EKG not indicated per [facility]ACC protocol Planned Anesthetic: Per anesthesia choice Instructions Given to Patient: Instructions located in the after visit summary. Patient given verbal and written preop instructions and voices comprehension and compliance. SIGNATURE: Chika Smith PA-C PATIENT NAME: Zayra Casas DATE: August 24, 2019 TIME: 12:58 PM PAGER/CONTACT #: [facility] Vital Signs Date Time Vital Sign Value Performing Clinician Magdalena loyd 05-02-2024 16:00-0500 Body height 166.4 cm Yovana Esposito PA Work Phone: [facility] 05-02-2024 16:00-0500 Body mass index (BMI) [Ratio] 56.7 kg/m2 Yovana Esposito PA Work Phone: [facility] 05-02-2024 16:00-0500 Body temperature 97.9 [degF] Yovana Esposito PA Work Phone: [facility] 05-02-2024 16:00-0500 Body weight 156.94 kg Yovana Esposito PA Work Phone: [facility] 05-02-2024 16:00-0500 Diastolic blood pressure 72 mm[Hg] Yovana Esposito PA Work Phone: [facility] 05-02-2024 16:00-0500 Heart rate 79 /min Yovana Esposito PA Work Phone: [facility] 05-02-2024 16:00-0500 SaO2% (BldA) [Mass fraction] 98 % Yovana Esposito PA Work Phone: [facility] 05-02-2024 16:00-0500 Systolic blood pressure 126 mm[Hg] Yovana Esposito PA Work Phone: [facility] 03-21-2024 13:20-0500 Body height 166.4 cm Yovana Esposito PA Work Phone: [facility] 03-21-2024 13:20-0500 Body mass index (BMI) [Ratio] 51.95 kg/m2 Yovana Esposito PA Work Phone: [facility] 03-21-2024 13:20-0500 Body temperature 96.4 [degF] Yovana Esposito PA Work Phone: [facility] 03-21-2024 13:20-0500 Body weight 143.79 kg Yovana Esposito PA Work Phone: [facility] 03-21-2024 13:20-0500 Diastolic blood pressure 84 mm[Hg] Yovana Esposito PA Work Phone: [facility] 03-21-2024 13:20-0500 Heart rate 92 /min Yovana Esposito PA Work Phone: [facility] 03-21-2024 13:20-0500 SaO2% (BldA) [Mass fraction] 98 % Yovana Esposito PA Work Phone: [facility] 03-21-2024 13:20-0500 Systolic blood pressure 132 mm[Hg] Yovana Esposito PA Work Phone: [facility] 03-18-2024 10:53-0500 Body height 166.4 cm Jaquelin Mata [employer] Work Phone: [facility] 03-18-2024 10:53-0500 Body mass index (BMI) [Ratio] 51.95 kg/m2 Jaquelin Rydery [employer] Work Phone: [facility] 03-18-2024 10:53-0500 Body temperature 96.4 [degF] Jaquelin Rydery [employer] Work Phone: [facility] 03-18-2024 10:53-0500 Body weight 143.79 kg Jaquelin Rydery [employer] Work Phone: [facility] 03-18-2024 10:53-0500 Diastolic blood pressure 84 mm[Hg] Jaquelin Rydery [employer] Work Phone: [facility] 03-18-2024 10:53-0500 Heart rate 101 /min Jaquelin Rydery [employer] Work Phone: [facility] 03-18-2024 10:53-0500 SaO2% (BldA) [Mass fraction] 99 % Jaquelin Rydery [employer] Work Phone: [facility] 03-18-2024 10:53-0500 Systolic blood pressure 132 mm[Hg] Jaquelin Luby [employer] Work Phone: [facility] Encounters Encounter Date Encounter Type Care Provider Facility Start: 05-05-2024 End: 05-05-2024 Orders Only Yovana Esposito PA Work Phone: [facility] Comment on above: Hyperthyroidism (CMS /HCC) Spasm (Primary Dx) Start: 05-02-2024 End: 05-02-2024 Office outpatient visit 25 minutes Yovana Esposito PA Work Phone: [facility] Comment on above: Acquired hypothyroid ism (CMS/HCC) (Primary Dx); Peripheral edema Start: 05-02-2024 ambulatory YOVANA ESPOSITO Not Availa ble Start: 05-02-2024 End: 05-02-2024 Bamboo flowsheet Yovana Esposito PA Work Phone: [facility] Start: 05-02-2024 End: 05-02-2024 Bamboo flowsheet Yovana Esposito PA Work Phone: [facility] Start: 04-04-2024 End: 04-04-2024 Telephone encounter Yovana Esposito PA Work Phone: [facility] Comment on above: FMLA paperwork Start: 03-23-2024 End: 03-23-2024 Telephone encounter Jag Patel DO Work Phone: [facility] Comment on above: fmla paperwork Start: 03-21-2024 End: 03-21-2024 Office outpatient visit 15 minutes Yovana Esposito PA Work Phone: [facility] Comment on above: Acute left otitis me boy (Primary Dx); Nausea; Hyperthyroidism (CMS/HCC); Mixed hyperlipidemia (CMS/HCC) Start: 03-21-2024 End: 03-21-2024 ambulatory YOVANA ESPOSITO Not Available Start: 03-18-2024 End: 03-18-2024 Bamboo flowsheet Jaquelin Mata [employer] Work Phone: [facility] Start: 03-18-2024 End: 03-18-2024 Bamboo flowsheet Jaquelin Mata [employer]ER [employer] Work Phone: [facility] Start: 03-18-2024 End: 03-18-2024 ambulatory JAQUELIN MATA Not Available Start: 03-18-2024 End: 03-18-2024 Office outpatient visit 25 minutes Jaquelin Mata [employer] Work Phone: [facility] Comment on above: Sore throat (Primary Dx); Acute left otitis media; Weight gain; Lipid screening; Encounter for screening examination for impaired glucose regulation and diabetes mellitus Start: 06-26-2023 End: 06-26-2023 ambulatory JAG PATEL Not Available Start: 05-21-2023 ambulatory Tiburcio Joseph MA [facility] Start: 05-21-2023 Patient encounter procedure Tiburcio vargas MA [facility] Comment on above: [facility] ( [facility] Referral/Mammogram) Start: 02-11-2023 End: 02-11-2023 ambulatory Yovana Esposito Facility:[facility] Start: 02-11-2023 End: 02-11-2023 ambulatory DO Tammy Patel Work Phone: [facility] Work Phone: Start: 02-11-2023 End: 02-11-2023 Patient encounter procedure DO Tammy Patel Work Phone: [facility] Start: 01-13-2020 End: 01-14-2020 Patient encounter procedure JOHNNY JEREZ Facility: Procedures Date Procedure Procedure Detail Performing Clinician Start: 05-02-2024 Assay of free thyroxine Yovana Esposito PA Work Phone: Start: 03-18-2024 STATUS COVID-19/FLU Nano Mata [employer] Work Phone: Start: 03-18-2024 Iaadiadoo streptococ cus group a Jaquelin Mata [employer]SFER [employer] Work Phone: Start: 06-26-2023 Mammography Jaquelin Mata [employer] Work Phone: Start: 02-11-2023 Respiratory Panel (PCR) DO Tammy Patel Work Phone: Plan of Treatment Date Care Activity Detail Author Start: 06-25-2024 Screening for malign ant neoplasm of breast Mammogram [facility] Start: 05-02-2024 End: 05-02-2024 Patient encounter procedure [facility] Comment on above: Arrived Start: 05-02-2024 End: 05-02-2025 US Thyroid gland [facility] Work Phone: Comment on above: Expected: 05/02/2024 , Expires: 05/02/2025 Start: 11-08-2023 Influenza vaccination Influenza Vacc ine (#1) [facility] Start: 03-09-2023 Depression Assessment Depression Ass essment [facility] Start: 11-07-2022 Covid-19 Vaccine () Covid-19 Vaccine () [facility] Start: 11-07-2022 Influenza vaccination Influenza Vacc ine (#1) [facility] Start: 2020 Screening for malign ant neoplasm of breast Mammogram Screening [facility] Start: 2010 Screening for malign ant neoplasm of cervix HPV Testing [facility] Start: 2001 Screening for malign ant neoplasm of cervix Pap Testing [facility] Start: 08-13-1999 Hepatitis B Vaccine (1 of 3 - 19+ 3-dose series) Hepatitis B Vaccine (1 of 3 - 19+ 3-dose series) [facility] Start: 08-13-1999 Urine microalbumin profile DTaP,Tdap,Td Vaccine (1 - Tdap) [facility] Start: 1998 Hepatitis C screening Hepatitis C Sc reening [facility] Start: 1998 HIV screening HIV Screening [facility] CBC panel - Blood by Automated count CBC Lab Routine Weight gain Lipid screening Encounter for screening examination for impaired glucose regulation and diabetes mellitus Ordered: 03/18/2024 [facility] Comment on above: Ordered: 03/18/2024 Comprehensive metabo lic 2000 panel - Serum or Plasma Comprehensive metabolic panel Lab Routine Weight gain Lipid screening Encounter for screening examination for impaired glucose regulation and diabetes mellitus Ordered: 03/18/2024 [facility] Comment on above: Ordered: 03/18/2024 End: 06-19-2024 DBT Breast - bilateral screening [facility] Routine Encounter for screening mammogram for malignant neoplasm of breast 1 Occurrences starting 05/21/2023 until 06/19/2024 [facility] Work Phone: Comment on above: 1 Occurrences starti ng 05/21/2023 until 06/19/2024 Lipid 1996 panel - S grant or Plasma Lipid panel Lab Routine Weight gain Lipid screening Encounter for screening examination for impaired glucose regulation and diabetes mellitus Ordered: 03/18/2024 [facility] [employer] Work Phone: Comment on above: Ordered: 03/18/2024 Thyrotropin [Units/volume] in Serum or Plasma Tsh+free t4 Lab Routine Weight gain Lipid screening Encounter for screening examination for impaired glucose regulation and diabetes mellitus Ordered: 03/18/2024 [facility] Comment on above: Ordered: 03/18/2024 [facility] Immunizations Immunization Date Immunization Notes Care Provider Laura rao 12-30-2017 influenza virus vacc ine, unspecified formulation Tiburcio Joseph MA [facility] Payers Date Payer Category Payer Self-pay [id number] 2022 Unknown [id number] 2017 Private Health Insurance [id number] 1980 Unknown [id number] 1980 Unknown [id number] 1980 Unknown [id number] 1980 Unknown [id number] 1980 Unknown [id number] 1980 Unknown [id number] 1959 Unknown [id number] Unknown [place] [id number] Unknown [id number] Worker's Compensation [id number] Social History Date Type Detail Facility Start: 01-13-2019 Tobacco smoking status MNIS Current some day smoker [facility] Start: 1980 Sex Assigned At Female [facility] Start: 08-23-2019 Tobacco smoking status MNIS Never smoked tobacco [facility] Start: 08-23-2019 End: 05-02-2024 Tobacco use and exposure Smokeless tobacco non-user [facility] Start: 10-07-2019 Alcohol intake Current drinker of alcohol (finding) [facility] Start: 08-24-2019 End: 05-01-2024 History of Social function [facility] Work Phone: Start: 08-24-2019 End: 05-01-2024 Alcohol Use Disorder Identification Test - Consumption [AUDIT-C] [facility] Work Phone: How often to you hav e a drink containing alcohol? Monthly or less [facility] Work Phone: How many standard dr inks containing alcohol do you have on a typical day? 1 or 2 [facility] Work Phone: How often do you hav e 6 or more drinks on 1 occasion? Never [facility] Work Phone: National Score (1-10 0), lower number is lower risk Not on file [facility] Start: 08-24-2019 Alcohol Comment couple drinks a year [facility] Start: 08-09-2019 Gender identity Identifies as female gender (finding) [facility] Start: 08-09-2019 Sexual orientation Heterosexual (finding) [facility] Start: 02-18-2023 End: 05-02-2024 Tobacco smoking status NHIS Ex-smoker [facility] End: 03-11-2017 History of tobacco use Current smoker [facility] End: 03-11-2017 History of tobacco use Cigarette Smoker [facility] Start: 02-18-2023 End: 05-03-2024 Alcoholic beverage intake Lifetime non-drinker (finding) [facility] Start: 02-18-2023 Tobacco Comment Last smoked : 1-5 years [facility] Start: 02-18-2023 Alcohol Comment caffeine intake : 1-2 cups per day pop/coffee [facility] Do you belong to any clubs or organizations such as caodaism groups, unions, fraternal or athletic groups, or school groups? Yes [facility] Are you now , , , , never or living with a partner? [facility] How hard is it for y ou to pay for the very basics like food, housing, medical care, and heating Not very hard [facility] Do you feel stress - tense, restless, nervous, or anxious, or unable to sleep at night because your mind is troubled all the time - these days [OSQ] Only a little [facility] (I/We) worried wheth er (my/our) food would run out before (I/we) got money to buy more. Never true [facility] In the past 12 month s, was there a time when you were not able to pay the mortgage or rent on time? No [facility] Start: 05-02-2024 Tobacco Comment Smoked cigarettes [facility] Clinical Notes 05-21-2023 to 05-05-2024 SANDY Bravo - 05/05/2024 12:02 PM SANDY Suarez - 05/05/2024 10:45 AM SANDY Suarez - 05/02/2024 4:00 PM ESTTelephone Encounter - Jacqui Adamson - 04/04/2024 3:07 PM EST Note Date & Type Note Facility 05-05-2024 History of Presen t illness Narrative Rx sent. documented in this encounter [facility] 05-05-2024 History of Presen t illness Narrative Rx sent. documented in this encounter [facility] 05-02-2024 History of Presen t illness Narrative Images from the original note were not included. Subjective Patient ID: Zayra Casas is a 43 y.o. female who presents for Follow-up (Pt presents for her 6 week follow up. Pt notes that she is still very tired, her legs are still very sore and swollen, and her skin is very dry and itchy even though she uses lotion. Pt also notes that she is still gaining weight. She does not feel like the medication is working. Pt notes that she is back to getting headaches. Pt would like to have her ears looked at to make sure the infection is gone.). Review of Systems Constitutional: Positive for fatigue. Negative for chills and fever. Respiratory: Negative for shortness of breath. Cardiovascular: Positive for leg swelling. Negative for chest pain. Gastrointestinal: Negative for diarrhea, nausea and vomiting. Musculoskeletal: Positive for back pain. Negative for myalgias. Skin: Negative for rash. Neurological: Positive for numbness. All other systems reviewed and are negative. Objective Visit Vitals BP 126/72 Pulse 79 Temp 97.9 F Ht 5' 5.5 Wt 346 lb SpO2 98% BMI 56.70 kg/m OB Status Hysterectomy Smoking Status Former BSA 2.69 m Physical Exam Constitutional: General: She is not in acute distress. Appearance: Normal appearance. HENT: Head: Normocephalic and atraumatic. Mouth/Throat: Mouth: Mucous membranes are moist. Eyes: Extraocular Movements: Extraocular movements intact. Neck: Thyroid: No thyromegaly or thyroid tenderness. Vascular: No carotid bruit. Comments: Possible left-sided thyroid nodule Cardiovascular: Rate and Rhythm: Normal rate and regular rhythm. Pulses: Normal pulses. Heart sounds: No murmur heard. No friction rub. No gallop. Pulmonary: Effort: No respiratory distress. Breath sounds: Normal breath sounds. No wheezing, rhonchi or rales. Abdominal: General: Bowel sounds are normal. There is no distension. Palpations: Abdomen is soft. Tenderness: There is no abdominal tenderness. Musculoskeletal: Right lower le+ Edema present. Left lower le+ Edema present. Skin: General: Skin is warm and dry. Findings: No rash. Neurological: General: No focal deficit present. Mental Status: She is alert and oriented to person, place, and time. Psychiatric: Mood and Affect: Mood normal. Behavior: Behavior normal. Judgment: Judgment normal. Assessment/Plan Diagnoses and all orders for this visit: Acquired hypothyroidism (CMS/HCC) - TSH; Future - T4, free; Future - US thyroid; Future Repeat labs and have a thyroid US completed due to possible thyroid nodule. Will call with results and determine follow up at that time. Cont medication as directed. Peripheral edema - furosemide (Lasix) 20 MG tablet; Take 1 tablet (20 mg) by mouth Daily as needed (q24hrs) Use compression stockings during the day. Elevate legs when possible. Avoid extra salt in diet and drink abundant water. Take diuretic medication as needed. Discussed side effects of the medication. Reviewed kidney function prior to prescribing. All questions answered. Call the office with any other questions or concerns. documented in this encounter [facility] 04-04-2024 Telephone encounter Note Pt calling to fu with [place] paperwork. This would be for the dates 03/17 with a return to work on the 03/28. The form is 8 pages. She says her work still has not received anything. I did not see it in her media. She would like a call back as to where this paperwork is. Please call her and let her know what the status is on that. [facility] 04-04-2024 Miscellaneous Notes Pt calling to fu with FMLA paperwork. This would be for the dates 03/17 with a return to work on the 03/28. The form is 8 pages. She says her work still has not received anything. I did not see it in her media. She would like a call back as to where this paperwork is. Please call her and let her know what the status is on that. documented in this encounter [facility] 03-23-2024 Telephone encounter Note Pt calling to inquire about the status of her fmla/work leave paperwork from [employer] She said they were faxing it over yesterday. [facility] 03-23-2024 Miscellaneous Notes Pt calling to inquire about the status of her fmla/work leave paperwork from [employer] She said they were faxing it over yesterday. documented in this encounter [facility] 03-21-2024 History of Presen t illness Narrative Images from the original note were not included. SUBJECTIVE: Zayra Casas is a 43 y.o. female presents with chief complaint of Follow-up (Pt states that she is still having sore throat, now both ears are painful, she states that she is extremely dizzy, pt also states she had lab work done and would like the results) Earache There is pain in both ears. This is a new problem. The current episode started in the past 7 days. The problem has been unchanged. There has been no fever. The pain is moderate. Associated symptoms include coughing, headaches, a sore throat and vomiting. Pertinent negatives include no diarrhea or rash. She has tried antibiotics for the symptoms. The treatment provided no relief. Review of Systems: Review of Systems HENT: Positive for ear pain and sore throat. Respiratory: Positive for cough. Gastrointestinal: Positive for vomiting. Negative for diarrhea. Skin: Negative for rash. Neurological: Positive for headaches. All other systems reviewed and are negative. Current Medications: Current Outpatient Medications on File Prior to Visit Medication Sig Dispense Refill amoxicillin-clavulanate (Augmentin) 875-125 MG tablet Take 1 tablet (875 mg) by mouth in the morning and 1 tablet (875 mg) before bedtime. Do all this for 10 days. 20 tablet 0 [DISCONTINUED] dextromethorphan-guaiFENesin (MUCINEX DM MAX STRENGTH) 60-1200 MG 12 hr tablet Take 1 tablet by mouth every 12 (twelve) hours if needed (BID) (Patient not taking: Reported on 03/18/2024) 20 tablet 0 [DISCONTINUED] fluticasone (Flonase) 50 MCG/ACT nasal spray Administer 1-2 sprays into each nostril in the morning. Shake gently. Before first use, prime pump. After use, clean tip and replace cap. (Patient not taking: Reported on 03/18/2024) 16 g 0 [DISCONTINUED] methocarbamol (Robaxin) 500 MG tablet Take 500 mg by mouth every 6 (six) hours (Patient not taking: Reported on 03/18/2024) [DISCONTINUED] naproxen (EC Naprosyn) 500 MG EC tablet Take 500 mg by mouth in the morning and 500 mg before bedtime. (Patient not taking: Reported on 03/18/2024) [DISCONTINUED] Nirmatrelvir&Ritonavir 300/100 (Paxlovid, 300/100,) 20 x 150 MG & 10 x 100MG tablet therapy pack Take 1 Package by mouth See administration instructions (Patient not taking: Reported on 03/18/2024) 1 each 0 [DISCONTINUED] predniSONE (Deltasone) 20 MG tablet Take 3 tablets for 2 days, then take 2 tablets for 2 days, then take 1 tablet for 2 days by mouth (Patient not taking: Reported on 03/18/2024) 12 tablet 0 No current facility-administered medications on file prior to visit. I have reviewed and reconciled the history and medication list with the patient today. Past Medical History: Past Medical History: Diagnosis Date Abnormal Pap smear of cervix ASC -H Polycystic ovaries Family History: Family History Problem Relation Name Age of Onset Breast cancer Mother 50 L & W age 43, mastectomy (estrogen positive) Allergies: Allergies Allergen Reactions Latex Hives Penicillins GI intolerance Sulfa Antibiotics Surgical History: Past Surgical History: Procedure Laterality Date HYSTERECTOMY 2019 OTHER SURGICAL HISTORY 2016 LSO OTHER SURGICAL HISTORY 2016 seroma-staph infection WISDOM TOOTH EXTRACTION x 4 Social History: Social Drivers of Health Tobacco Use: Medium Risk (03/21/2024) Patient History Smoking Tobacco Use: Former Smokeless Tobacco Use: Unknown Passive Exposure: Not on file Alcohol Use: Not At Risk (08/24/2019) [facility]C Frequency of Alcohol Consumption: Monthly or less Average Number of Drinks: 1 or 2 Frequency of Binge Drinking: Never Financial Resource Strain: Not on file Food Insecurity: Not on file Transportation Needs: Not on file Physical Activity: Not on file Stress: Not on file Social Connections: Not on file Intimate Partner Violence: Not on file Depression: Not at risk (03/21/2024) PHQ-2 PHQ-2 Score: 0 Housing Stability: Not on file Health Literacy: Not on file OBJECTIVE: Visit Vitals BP 132/84 Pulse 92 Temp 96.4 F Ht 5' 5.5 Wt 317 lb SpO2 98% BMI 51.95 kg/m OB Status Hysterectomy Smoking Status Former BSA 2.58 m Physical Exam Constitutional: Appearance: Normal appearance. She is ill-appearing. HENT: Head: Normocephalic and atraumatic. Right Ear: Ear canal normal. Tympanic membrane is erythematous. Tympanic membrane is not bulging. Left Ear: Ear canal normal. Tympanic membrane is erythematous. Tympanic membrane is not bulging. Nose: Rhinorrhea present. Mouth/Throat: Mouth: Mucous membranes are moist. Eyes: Extraocular Movements: Extraocular movements intact. Cardiovascular: Rate and Rhythm: Normal rate and regular rhythm. Pulses: Normal pulses. Heart sounds: Normal heart sounds. Pulmonary: Effort: Pulmonary effort is normal. Breath sounds: Normal breath sounds. No wheezing, rhonchi or rales. Skin: General: Skin is warm and dry. Neurological: General: No focal deficit present. Mental Status: She is alert. Psychiatric: Mood and Affect: Mood normal. Behavior: Behavior normal. Judgment: Judgment normal. Recent Results (from the past 4 weeks) POCT rapid strep A manually resulted Collection Time: 03/18/24 11:21 AM Result Value Ref Range Rapid Strep A Screen Negative Negative, None Detected STATUS COVID-19/FLU Collection Time: 03/18/24 11:23 AM Result Value Ref Range FLU A negative FLU B negative SARS COV 2 RNA negative Lipid panel Collection Time: 03/18/24 11:31 AM Result Value Ref Range Cholesterol, Total 305 (H) 100 - 199 mg/dL Triglycerides 91 0 - 149 mg/dL HDL Cholesterol 71 >39 mg/dL VLDL Cholesterol Tim 15 5 - 40 mg/dL LDL Chol Calc (NIH) 219 (H) 0 - 99 mg/dL LDL CHOLESTEROL,CALCULATED Comment Tsh+free t4 Collection Time: 03/18/24 11:31 AM Result Value Ref Range TSH 19.200 (H) 0.450 - 4.500 uIU/mL T4Free(Direct) 0.68 (L) 0.82 - 1.77 ng/dL Comprehensive metabolic panel Collection Time: 03/18/24 11:31 AM Result Value Ref Range Glucose 103 (H) 70 - 99 mg/dL BUN 16 6 - 24 mg/dL Creat 0.77 0.57 - 1.00 mg/dL EGFR 98 >59 mL/min/1.73 BUN/Creat Ratio 21 9 - 23 Sodium 140 134 - 144 mmol/L Potassium 4.5 3.5 - 5.2 mmol/L Chloride 98 96 - 106 mmol/L Carbon Dioxide 29 20 - 29 mmol/L Calcium 9.6 8.7 - 10.2 mg/dL Protein Total 7.7 6.0 - 8.5 g/dL Albumin 4.4 3.9 - 4.9 g/dL Globulin Total 3.3 1.5 - 4.5 g/dL Bili Total 0.4 0.0 - 1.2 mg/dL Alk Phosphatase 66 44 - 121 IU/L AST 19 0 - 40 IU/L ALT 31 0 - 32 IU/L CBC Collection Time: 03/18/24 11:31 AM Result Value Ref Range WBC 7.5 3.4 - 10.8 x10E3/uL RBC 4.56 3.77 - 5.28 x10E6/uL Hgb 13.9 11.1 - 15.9 g/dL Hct 42.1 34.0 - 46.6 % MCV 92 79 - 97 fL MCH 30.5 26.6 - 33.0 pg MCHC 33.0 31.5 - 35.7 g/dL RDW 12.7 11.7 - 15.4 % Platelets 327 150 - 450 x10E3/uL ASSESSMENT AND PLAN: Assessment/Plan Diagnoses and all orders for this visit: Acute left otitis media (Primary) - fluticasone (Flonase) 50 MCG/ACT nasal spray; Administer 1-2 sprays into each nostril Daily Shake gently. Before first use, prime pump. After use, clean tip and replace cap - azithromycin (Zithromax) 250 MG tablet; Take 2 tablets on day 1, then take 1 tablet for 4 days by mouth - pseudoephedrine (Sudafed) 60 MG tablet; Take 1 tablet (60 mg) by mouth every 6 (six) hours if needed for congestion Treatment options discussed; take medications as directed. Patient advised to increase fluid intake, use guaifenesin, and humidify the air. May use Tylenol as needed. F/u if not improving. To ER or Urgent Care if symptoms worsen or fever >101.5. Report to ER for any breathing difficulties. Nausea - ondansetron (Zofran) 4 MG tablet; Take 1 tablet (4 mg) by mouth every 8 (eight) hours if needed for nausea or vomiting Hyperthyroidism (CMS/HCC) - levothyroxine (Synthroid, Levoxyl) 50 MCG tablet; Take 1 tablet (50 mcg) by mouth Daily Mixed hyperlipidemia (CMS/HCC) - atorvastatin (Lipitor) 20 MG tablet; Take 1 tablet (20 mg) by mouth Daily Reviewed lipid panel with patient. Discussed importance of maintaining LDL at specified goal. Discussed risks associated with hyperlipidemia including stroke and heart attack. Medications as directed. Discussed dietary modifications, including decreasing red meat consumption, decreasing alcohol consumption, avoiding fried fatty foods and cakes, cookies, and sweets. Encouraged to increase fiber in diet and eat a diet rich in omega-3. Encouraged to exercise at least 150 minutes weekly. Barriers to the plan of care have been addressed. Obtain labs as directed and call our office if you have not received the lab results within one week. Follow up as directed. All questions answered. Call the office with any questions or concerns. documented in this encounter [facility] 03-18-2024 History of Presen t illness Narrative Images from the original note were not included. SUBJECTIVE: Zayra Casas is a 43 y.o. female presents with chief complaint of Generalized Body Aches, Nasal Congestion, and Earache Pt has complaints today of congestion, ear pain, body aches, sore throat, fatigue, coughing, dizzy, chills. Had been sick last week but that went away. These symptoms started 2 days ago. Pt states she has been using a vaporizer and mucinex DM. Denies fevers Pt would also like lab work ordered to check her thyroid and labs checked. States having weight issues. . Earache Review of Systems: Review of Systems HENT: Positive for ear pain. All other systems reviewed and are negative. Current Medications: Current Outpatient Medications on File Prior to Visit Medication Sig Dispense Refill [DISCONTINUED] dextromethorphan-guaiFENesin (MUCINEX DM MAX STRENGTH) 60-1200 MG 12 hr tablet Take 1 tablet by mouth every 12 (twelve) hours if needed (BID) (Patient not taking: Reported on 03/18/2024) 20 tablet 0 [DISCONTINUED] fluticasone (Flonase) 50 MCG/ACT nasal spray Administer 1-2 sprays into each nostril in the morning. Shake gently. Before first use, prime pump. After use, clean tip and replace cap. (Patient not taking: Reported on 03/18/2024) 16 g 0 [DISCONTINUED] methocarbamol (Robaxin) 500 MG tablet Take 500 mg by mouth every 6 (six) hours (Patient not taking: Reported on 03/18/2024) [DISCONTINUED] naproxen (EC Naprosyn) 500 MG EC tablet Take 500 mg by mouth in the morning and 500 mg before bedtime. (Patient not taking: Reported on 03/18/2024) [DISCONTINUED] Nirmatrelvir&Ritonavir 300/100 (Paxlovid, 300/100,) 20 x 150 MG & 10 x 100MG tablet therapy pack Take 1 Package by mouth See administration instructions (Patient not taking: Reported on 03/18/2024) 1 each 0 [DISCONTINUED] predniSONE (Deltasone) 20 MG tablet Take 3 tablets for 2 days, then take 2 tablets for 2 days, then take 1 tablet for 2 days by mouth (Patient not taking: Reported on 03/18/2024) 12 tablet 0 No current facility-administered medications on file prior to visit. I have reviewed and reconciled the history and medication list with the patient today. Problem List: There is no problem list on file for this patient. Past Medical History: Past Medical History: Diagnosis Date Abnormal Pap smear of cervix ASC -H Polycystic ovaries Family History: Family History Problem Relation Name Age of Onset Breast cancer Mother 50 L & W age 43, mastectomy (estrogen positive) Allergies: Allergies Allergen Reactions Sulfa Antibiotics Surgical History: Past Surgical History: Procedure Laterality Date HYSTERECTOMY 2019 OTHER SURGICAL HISTORY 2016 LSO OTHER SURGICAL HISTORY 2016 seroma-staph infection WISDOM TOOTH EXTRACTION x 4 Social History: Social Drivers of Health Tobacco Use: Medium Risk (03/18/2024) Patient History Smoking Tobacco Use: Former Smokeless Tobacco Use: Unknown Passive Exposure: Not on file Alcohol Use: Not At Risk (08/24/2019) [facility] Frequency of Alcohol Consumption: Monthly or less Average Number of Drinks: 1 or 2 Frequency of Binge Drinking: Never Financial Resource Strain: Not on file Food Insecurity: Not on file Transportation Needs: Not on file Physical Activity: Not on file Stress: Not on file Social Connections: Not on file Intimate Partner Violence: Not on file Depression: Not at risk (03/18/2024) PHQ-2 PHQ-2 Score: 0 Housing Stability: Not on file Health Literacy: Not on file OBJECTIVE: Visit Vitals BP 132/84 Pulse 101 Temp 96.4 F Ht 5' 5.5 Wt 317 lb SpO2 99% BMI 51.95 kg/m OB Status Hysterectomy Smoking Status Former BSA 2.58 m Physical Exam Constitutional: Appearance: Normal appearance. HENT: Head: Normocephalic and atraumatic. Right Ear: Tympanic membrane normal. Left Ear: Tympanic membrane is erythematous and bulging. Nose: Rhinorrhea present. Mouth/Throat: Mouth: Mucous membranes are moist. Eyes: Extraocular Movements: Extraocular movements intact. Cardiovascular: Rate and Rhythm: Normal rate and regular rhythm. Pulses: Normal pulses. Heart sounds: Normal heart sounds. Pulmonary: Effort: Pulmonary effort is normal. Breath sounds: Normal breath sounds. No wheezing, rhonchi or rales. Musculoskeletal: Cervical back: Neck supple. Lymphadenopathy: Cervical: No cervical adenopathy. Skin: General: Skin is warm and dry. Neurological: General: No focal deficit present. Mental Status: She is alert. Psychiatric: Mood and Affect: Mood normal. Behavior: Behavior normal. Judgment: Judgment normal. Recent Results (from the past 4 weeks) POCT rapid strep A manually resulted Collection Time: 03/18/24 11:21 AM Result Value Ref Range Rapid Strep A Screen Negative Negative, None Detected STATUS COVID-19/FLU Collection Time: 03/18/24 11:23 AM Result Value Ref Range FLU A negative FLU B negative SARS COV 2 RNA negative ASSESSMENT AND PLAN: Assessment/Plan Diagnoses and all orders for this visit: Sore throat - POCT rapid strep A manually resulted - STATUS COVID-19/FLU Acute left otitis media - amoxicillin-clavulanate (Augmentin) 875-125 MG tablet; Take 1 tablet (875 mg) by mouth in the morning and 1 tablet (875 mg) before bedtime. D New medication as directed. Acetaminophen or ibuprofen for reduction of fever and pain. Increase fluids. Good handwashing. Discussed warning signs of worsening infection and when to report to ER. New toothbrush in 24 hours. Call office if symptoms have not started to improve within the next 72 hours. Patient verbalized understanding of instructions. Weight gain - Lipid panel - Tsh+free t4 - Comprehensive metabolic panel - CBC Lipid screening - Lipid panel - Tsh+free t4 - Comprehensive metabolic panel - CBC Encounter for screening examination for impaired glucose regulation and diabetes mellitus - Lipid panel - Tsh+free t4 - Comprehensive metabolic panel - CBC Will call with lab results. Advised a well visit with PCP as it has been years since seen in office. Follow up if symptoms worsen or fail to improve. documented in this encounter [facility] 06-01-2023 Note HNO ID: [id number] Author: TIBURCIO JOSEPH MA Service: ? Author Type: Ecommerce Marketing Manager Type: Progress Notes Filed: 06/01/2023 09:54 Note Text: [facility] Provider Kyra/CHUCK Mammogram clinic for 06/04/2023 @ [facility] has been canceled. Ms. Casas has been informed. We will reschedule at a later date. Tiburcio Joseph MA [facility] 06-01-2023 History of Presen t illness Narrative [facility] Provider Kyra/RAJENDRAI Mammogram clinic for 06/04/2023 @ [facility] has been canceled. Ms. Casas has been informed. We will reschedule at a later date. Tiburcio Joseph MA [facility] Provider Kyra/I Ms. Casas returned my call and has been scheduled for mammogram screening on 06/04/2023 @ [facility]. I will follow up with reminders and results. Zayra Casas was contacted to discuss their cancer screening needs. Pt identified by name and . Cancer Screening Care Gap Addressed: Breast Cancer Z12.31 Date of last Mammogram: N/A. Outreach Outcome: Spoke to patient / parent / legal guardian: Patient scheduled Payer: Insurance: Payor: AETNA / Plan: [employer]ENEFITS / Product Type: PPO / Payor: AETNA / Plan: [employer]ENEFITS / Product Type: PPO / Discussed with: Allegra Goode CNP Follow Up Actions: Appointment scheduled for Annual exam Barriers: N/A Results Sent to Provider/Practice: NO Tiburcio Joseph MA [facility] Provider Kyra/CHUCK Mammogram referral received. Attempted to make contact with the patient for scheduling, no answer. LVM asking for a return call. I will follow up. Tiburcio Joseph MA documented in this encounter [facility] 05-21-2023 Note HNO ID: [id number] Author: TIBURCIO JOSEPH MA Service: ? Author Type: Ecommerce Marketing Manager Type: Progress Notes Filed: 06/01/2023 09:54 Note Text: [facility] Provider Kyra/CHUCK Ms. Casas returned my call and has been scheduled for mammogram screening on 06/04/2023 @ [facility]. I will follow up with reminders and results. Zayra Casas was contacted to discuss their cancer screening needs. Pt identified by name and . Cancer Screening Care Gap Addressed: Breast Cancer Z12.31 Date of last Mammogram: N/A. Outreach Outcome: Spoke to patient / parent / legal guardian: Patient scheduled Payer: Insurance: Payor: AETNA / Plan: [employer] BENEFITS / Product Type: PPO / Payor: AETNA / Plan: [employer] BENEFITS / Product Type: PPO / Discussed with: Allegra Goode CNP Follow Up Actions: Appointment scheduled for Annual exam Barriers: N/A Results Sent to Provider/Practice: ENRRIQUE Joseph MA [facility] 05-21-2023 Note HNO ID: [id number] Author: TIBURCIO JOSEPH MA Service: ? Author Type: Ecommerce Marketing Manager Type: Progress Notes Filed: 06/01/2023 09:54 Note Text: [facility] OUTREACH Provider Action/FYI Mammogram referral received. Attempted to make contact with the patient for scheduling, no answer. LVM asking for a return call. I will follow up. Tiburcio Joseph MA [facility] 05-21-2023 Note Patient Outreach ( TIMO) ZAYRA CASAS ([id number]) 1980 F Date Time Provider Department 05/21/23 TIBURCIO JOSEPH During your visit today, we recorded the following information about you: Tiburcio Joseph MA 06/01/2023 9:54 AM Signed [facility] Provider Action/FYI Mammogram referral received. Attempted to make contact with the patient for scheduling, no answer. LVM asking for a return call. I will follow up. CHRISTINA Olivier Tracie, MA 06/01/2023 9:54 AM Signed [facility] Provider Action/FYI Ms. Casas returned my call and has been scheduled for mammogram screening on 06/04/2023 @ [facility]. I will follow up with reminders and results. Zayra Casas was contacted to discuss their cancer screening needs. Pt identified by name and . Cancer Screening Care Gap Addressed: Breast Cancer Z12.31 Date of last Mammogram: N/A. Outreach Outcome: Spoke to patient / parent / legal guardian: Patient scheduled Payer: Insurance: Payor: AETNA / Plan: [employer] BENEFITS / Product Type: PPO / Payor: AETNA / Plan: [employer] BENEFITS / Product Type: PPO / Discussed with: Allegra Goode CNP Follow Up Actions: Appointment scheduled for Annual exam Barriers: N/A Results Sent to Provider/Practice: NO CHRISTINA Olivier Tracie, MA 06/01/2023 9:54 AM Signed [facility] Provider Action/[facility] Mammogram clinic for 06/04/2023 @ [facility] has been canceled. Ms. Casas has been informed. We will reschedule at a later date. Tiburcio Joseph MA Allergies As of Date: 05/21/2023 Noted Allergy Reaction LATEX, NATURAL RUBBER 08/24/2019 4 - Hives Comments: Blisters SULFA (SULFONAMIDE ANTIBIOTICS) 08/09/2019 4 - Hives Date Reviewed: 10/07/2019 Reviewed by: Inna Gamble - Fully Assessed Reason for Visit: Community Outreach [Other] Cmt: [facility] Referral/Mammogram Primary Visit Diagnosis:Encounter for screening mammogram for malignant neoplasm of breast [Z12.31] Order(s):[facility] SCREENING W GLEN [[id number]] Order #: [id number] FUTURE Prescriptions as of 06/01/2023 - estradiol (VIVELLE-DOT) 0.05 mg/24 hr Apply 1 Patch as directed two times a week. - ketorolac (TORADOL) 10 mg tablet Take 1 tablet by mouth every 8 hours as needed. - cyclobenzaprine (FLEXERIL) 5 mg tablet Take 1 tablet by mouth three times daily as needed. Problem List As Of Date 05/21/2023 Noted Resolved Morbid obesity (HCC) [E66.01] 08/24/2019 Obesity, Class III, BMI >= 40 [E66.01] 10/07/2019 Encounter Status:Closed by TIBURCIO JOSEPH on 06/01/23 [facility] Evaluation note No assessment inform ation available [facility] Work Phone: Evaluation note Diagnosis Encounter for screening mammogram for malignant neoplasm of breast- Primary Other screening [facility] Diagnosis Sore throat- Primary Acute pharyngitis Acute left otitis media Weight gain Other symptoms concerning nutrition, metabolism, and development Lipid screening Screening for lipoid disorders Encounter for screening examination for impaired glucose regulation and diabetes mellitus documented in this encounter [facility]* Diagnosis Acute left otitis media- Primary Nausea Nausea alone Hyperthyroidism (CMS/HCC) Thyrotoxicosis without mention of goiter or other cause, without mention of thyrotoxic crisis or storm Mixed hyperlipidemia (CMS/HCC) Mixed hyperlipidemia [facility]* Diagnosis Acquired hypothyroidism (CMS/HCC)- Primary Unspecified hypothyroidism Peripheral edema Edema documented [facility]* Diagnosis Hyperthyroidism (CMS/HCC) Thyrotoxicosis without mention of goiter or other cause, without mention of thyrotoxic crisis or storm [facility]* Diagnosis Spasm- Primary Abnormal involuntary movements [facility] (narrative)* Diagnostic Procedure Only (Routine) - Pending Review Specialty Diagnoses / Procedures Referred By Katelyn t Referred To Contact [facility] Diagnoses Encounter for screening mammogram for malignant neoplasm of breast Procedures VALDEMAR SCREENING W GLEN SCREENING DIGITAL BREAST TOMOSYNTHESIS BI SCREENING MAMMOGRAPHY BI 2-VIEW BREAST INC Allegra Yoder APRN.LOADING SUPERVISOR [id number] [place] [address] [facility] [address] [place] [address] Referral ID Status Reason Start Date Expiration Date Visits Requested Visits Authorized [id number] Pending Review Auto-Generat ed Referral 05/21/2023 06/19/2024 1 1 [facility] Summary Purpose Family History No Family History Records FoundNo Family History Records FoundNo Family History Records FoundNo Family History Records FoundNo Family History Records Found Advance Directives Advance Directive Response Recorded Date/ Time Advance Directives No September 01 6:09am Chief Complaint and Reason for Visit Chief Complaint j06.9 Additional Source Comments INFORMATION SOURCE (unrecogn ized section and content) DATE CREATED AUTHOR 08/25/2019 [facility] DATE CREATED AUTHOR AUTHOR'S ORGANIZ ATION 01/18/2020 [facility] DATE CREATED AUTHOR AUTHOR'S ORGANIZ ATION 05/31/2023 [facility] DATE CREATED AUTHOR AUTHOR'S ORGANIZ ATION 06/01/2023 [facility] DATE CREATED AUTHOR AUTHOR'S ORGANIZ ATION 05/04/2024 [facility] EPIC Care Teams (unrecognized sec tion and content) Team Status: Active Member Role Status Dates Tammy Patel DO Primary Care Provider Active Team Status: Inactive Member Role Status Dates Tammy Patel DO Primary Care Provider Active Yovana Esposito PA-C Attending Provider Active [employer] Relationship Specialty Start Date End Date Jag Patel Jr., DO [address] [place] [id number] PCP - General Family Medicine 05/25/19 Henna Valadez DO [address] [place] [address] Referring Obstetrics 05/25/19 [employer] Relationship Specialty Start Date End Date Jag Patel DO [address] [place], [place] [phone] PCP - General Family Medicine 07/15/22 [employer] Relationship Specialty Start Date End Date Jag Patel DO [address] [place] [address] PCP - General Family Medicine 07/15/22 [employer] Relationship Specialty Start Date End Date Jag Patel, [address] [place] [address] PCP - General Family Medicine 07/15/22 [employer] Relationship Specialty Start Date End Date Jag Patel DO [address] [place] [address] PCP - General Family Medicine 07/15/22 [employer] Relationship Specialty Start Date End Date Jag Patel DO [address] [place], [place] [phone] PCP - General Family Medicine 07/15/22 [employer] Relationship Specialty Start Date End Date Jag Patel, DO [address] [place] [address] PCP - General Family Medicine 07/15/22 [employer] Relationship Specialty Start Date End Date Jag Patel DO [address] [place] [address] PCP - General Family Medicine 07/15/22 Goals (unrecognized section and content) Goals may be documented in a n alternate section Source Comments (unrecognize d section and content) In the event this informatio n is protected by the Federal Confidentiality of Alcohol and Drug Abuse Patient Records regulations: The Federal rules restrict any use of the information to criminally investigate or prosecute any alcohol or drug abuse patient[facility] Reason for Visit (unrecogniz ed section and content) Reason Onset Date Comments Community Outreach 05/21/2023 [employer] Ref erral/Mammogram Reason Comments Generalized Body Aches Nasal Congestion Earache Reason Comments Follow-up Pt states that she i s still having sore throat, now both ears are painful, she states that she is extremely dizzy, pt also states she had lab work done and would like the results Reason Onset Date Comments la paperwork 03/23/2024 Reason Onset Date Comments [facility] paperwork 04/04/2024 Reason Comments Follow-up Pt presents for her 6 week follow up. Pt notes that she is still very tired, her legs are still very sore and swollen, and her skin is very dry and itchy even though she uses lotion. Pt also notes that she is still gaining weight. She does not feel like the medication is working. Pt notes that she is back to getting headaches. Pt would like to have her ears looked at to make sure the infection is gone. FOR RECORDS PERTAINING TO PATIENTS WHO ARE OR HAVE BEEN ENROLLED IN A CHEMICAL DEPENDENCY/SUBSTANCEABUSE PROGRAM, SOME INFORMATION MAY BE OMITTED. This clinical summary was aggregated from multiple sources. Caution should be exercised in using it in the provision of clinical care. This summary normalizes information from multiple sources, and as a consequence, information in this document may materially change the coding, format and clinical context of patient data. In addition, data may be omitted in some cases. CLINICAL DECISIONS SHOULD BE BASED ON THE PRIMARY CLINICAL RECORDS. [facility]. provides no warranty or guarantee of the accuracy or completeness of information in this document.
[2024-05-06 16:53] LABS: Influenza Virus A Antigen Negative; Influenza Virus B Antigen Negative; Internal Control Within Normal Limits; SARS-CoV-2 Ag NEGATIVE (NEGATIVE)
[2024-05-06] MEDS: ACETAMINOPHEN 500 MG TABLET 1000 MG PO (18:40)
--- NOTE | 2024-05-06 19:10 | ECG_ITS ---
[facility] Test Date: 2024-05-06 Pat Name: ZAYRA LYNN Department: Room: - Gender: Female Pharmacy Technician Trainee: : 1980 Requested By: [id number] Order Number: [id number] Reading MD: SEKOU BRAUN Measurements Intervals [place] Rate: 81 P: 56 NM: 184 QRS: 8 QRSD: 128 T: 23 QT: 392 QTc: 429 Interpretive Statements 1100 Sinus rhythm 2320 Nonspecific intraventricular conduction delay 9130 borderline ECG No previous ECG available for comparison Electronically Signed On 05-08-2024 8:10:49 EST by SEKOU BRAUN
[2024-05-06 19:44] VITALS: PULSE 83; TEMP 38.3
[2024-05-06 19:50] LABS: Basophils Percent Auto 0.7 % (0.2-2.0); Eosinophils Percent Auto 0.2 % (0.9-7.0); Hematocrit 36.2 % (36.0-48.0); Hemoglobin 11.9 g/dL (12.0-16.0); Immature Granulocytes Abs Auto 0.01 10^3/uL (0.00-0.03); Immature Granulocytes Pct Auto 0.2 % (0.0-0.5); Lymphocytes Absolute Auto 0.8 10^3/uL (1.2-3.8); Lymphocytes Percent Auto 18.3 % (20.5-60.0); Mean Corpuscular HGB Conc 32.9 g/dL (29.9-35.2); Mean Corpuscular Hemoglobin 30.7 pg (26.7-34.0); Mean Corpuscular Volume 93.5 fL (81.0-99.0); Mean Platelet Volume 9.9 fL (9.5-13.5); Monocytes Absolute Auto 0.7 10^3/uL (0.3-0.8); Monocytes Percent Auto 15.8 % (1.7-12.0); Neutrophils Absolute Auto 2.8 10^3/uL (1.4-6.5); Neutrophils Percent Auto 64.8 % (43.0-75.0); Platelet Count 200 10^3/uL (150-450); Red Blood Count 3.87 10^6/uL (4.20-5.40); Red Cell Distribution Width 12.4 % (11.0-15.0); White Blood Count 4.4 10^3/uL (4.0-11.0)
[2024-05-06 20:04] LABS: Alanine Aminotransferase 42 U/L (14-59); Albumin Globulin Ratio 0.9; Albumin Level 3.5 g/dL (3.4-5.0); Alkaline Phosphatase 53 U/L (46-116); Anion Gap 12.6; Aspartate Amino Transferase 21 U/L (15-37); BUN Creatinine Ratio 13.5; Bilirubin Total 0.5 mg/dL (0.2-1.0); Calcium 8.2 mg/dL (8.5-10.1); Carbon Dioxide 25.8 mmol/L (21.0-32.0); Chloride 100 mmol/L (98-107); Estimated GFR (African America >60 (>=60 mL/min/1.73m^2); Estimated GFR (Non-African Ame >60 (>=60 mL/min/1.73m^2); Globulin 3.8 g/dL; Glucose 101 mg/dL (74-106); Potassium 3.4 mmol/L (3.5-5.1); Sodium 135 mmol/L (136-145); Total Protein 7.3 g/dL (6.4-8.2); Troponin I High Sensitivity 8.4 pg/mL (4.0-51.3)
[2024-05-06 20:32] VITALS: BP 100/50; PULSE 77; TEMP 37.6; O2SAT 97
--- NOTE | 2024-05-06 21:07 | ED_ITS ---
HPI HPI - General Adult General Chief complaint: Upper Respiratory Infection Stated complaint: SHORT OF BREATH, PASSED OUT AT WORK Time Seen by Provider: 05/06/24 19:03 Source: patient Mode of arrival: walk-in History of Present Illness HPI narrative: The patient is a 43 years old female morbidly obese with history of hyperlipidemia as well as hypothyroidism, is coming to the ER with 24 hours history of feeling weak and tired in addition to shortness of breath and chest tightness, the patient has been having some fever as well Patient also have a cough, she mentioned that before arrival she feels that she is almost going to pass out for few seconds and that was when she was at work, at that time she was sitting at her desk Related Data Home Medications ?Medication ?Instructions ?Recorded ?Confirmed atorvastatin 20 mg tablet 20 mg PO DAILY 05/06/24 05/06/24 cyclobenzaprine 10 mg tablet 10 mg PO Q8H PRN muscle spasm 05/06/24 05/06/24 furosemide 20 mg tablet 20 mg PO DAILY 05/06/24 05/06/24 levothyroxine 75 mcg tablet 75 mcg PO DAILY 05/06/24 05/06/24 Previous Rx's ?Medication ?Instructions ?Recorded hydrocodone 5 mg-acetaminophen 325 1 tab PO Q4H PRN pain #10 tabs 01/19/23 mg tablet azithromycin 250 mg tablet See Rx Instructions PO .COMPLEX #6 05/06/24 (Zithromax Z-Balwinder) tabs Allergies Allergy/AdvReac Type Severity Reaction Status Date / Time latex Allergy Severe Unknown Verified 05/06/24 16:04 Penicillins Allergy Severe icthy Verified 01/19/23 18:53 Sulfa (Sulfonamide Allergy Severe Anaphylaxis Verified 01/19/23 18:53 Antibiotics) Opioid HPI Opioid Management Most Recent Opioid Data: Last Pain Scale 7 05/06/24 18:40 05/06/24 Last MAR Pain Assessment 05/06/24 18:40 Review of Systems ROS Status of ROS 10 or more systems reviewed and unremark able except as noted in history and below PFSH PFSH Social History Smoking status: Light tobacco smoker Little interest or pleasure in doing things: not at all Feeling down, depressed, or hopeless: not at all Exam Narrative Exam Narrative: Nurses notes and vital signs reviewed and patient is not hypoxic. General: Well-appearing and in no apparent distress. Skin: Warm, dry, no pallor noted. No rash. Head: Normocephalic, atraumatic. Neck: Supple, non-tender. Eye: Pupils are equal, round and EOMI. No scleral icterus. Ears, Nose, Mouth, and Throat: TM are clear, no nasal mucosal hypertrophy. Oral mucosa is moist, no posterior oropharynx erythema, uvula is mid-line Cardiovascular: Regular Rate and Rhythm without murmur, gallop or rub. Respiratory: No accessory muscle use or respiratory distress. Lungs are clear to auscultation, no wheezing, rales or rhonchi Chest Wall: no tenderness Back: No midline thoracic or lumbar vertebral tenderness. No CVA tenderness Musculoskeletal: normal ROM, no calf or popliteal tenderness, no lower extremity edema/swelling GI: Abdomen is soft, non-distended. Normal bowel sounds. No masses appreciated. No tenderness to palpation. No rebound, guarding, or rigidity noted. Constitutional Vital Signs, click to edit/add: Last Vital Signs Temp 99.6 F 05/06/24 20:32 Pulse 77 05/06/24 20:32 Resp 22 H 05/06/24 20:32 BP 100/50 05/06/24 20:32 Pulse Ox 97 05/06/24 20:32 O2 Del Method Room Air 05/06/24 15:50 Course Vital Signs Vital signs: Vital Signs Temperature 100.9 F H 05/06/24 15:50 Pulse Rate 96 H 05/06/24 15:50 Respiratory Rate 20 05/06/24 15:50 Blood Pressure 120/82 05/06/24 15:50 Pulse Oximetry 95 05/06/24 15:50 Oxygen Delivery Method Room Air 05/06/24 15:50 Temperature 99.6 F 05/06/24 20:32 Pulse Rate 77 05/06/24 20:32 Respiratory Rate 22 H 05/06/24 20:32 Blood Pressure 100/50 05/06/24 20:32 Pulse Oximetry 97 05/06/24 20:32 Oxygen Delivery Method Room Air 05/06/24 15:50 Medical Decision Making MDM Narrative Medical decision making narrative: The patient EKG in the ER showing sinus rhythm with a heart rate of [address] elevation or depression The patient troponin as well as CBC and chemistry showed no acute significant pathology except for some hyponatremia and potassium 3.4 The patient mild dehydration signs could be secondary to the fever that she is having COVID and flu test are negative Right now the patient will be covered with antibiotic specially that the chest x-ray showing on the prelim reading that there is infiltrate on the right side BNP is negative as well as troponin and the patient does not have any signs of hypoxemia With her fever generalized body ache as well as the cough and shortness of breath the patient presentation mostly secondary to viral illness or pneumonia I did explain to the patient right now that after she was provided IV fluid in the ER and discharged home with a Z-Balwinder that in case of any new symptoms she is to come back to the ER she is also to rest from work for the next 3 days Patient to come back to us in case of any progression of her symptoms or any new symptoms The patient is to follow up with primary care physician in next 2-3 days or to return to the emergency department should any of the signs or symptoms worsen or new symptoms develop. The patient agrees with the following Diagnosis and Treatment plan and the patient will be discharged home. Lab Data Labs: Lab Results 05/06/24 05/06/24 Range/Units 16:00 19:27 WBC 4.4 (4.0-11.0) 10^3/uL RBC 3.87 L (4.20-5.40) 10^6/uL Hgb 11.9 L (12.0-16.0) g/dL Hct 36.2 (36.0-48.0) % MCV 93.5 (81.0-99.0) fL MCH 30.7 (26.7-34.0) pg MCHC 32.9 (29.9-35.2) g/dL RDW 12.4 (11.0-15.0) % Plt Count 200 (150-450) 10^3/uL MPV 9.9 (9.5-13.5) fL Neut % (Auto) 64.8 (43.0-75.0) % Lymph % (Auto) 18.3 L (20.5-60.0) % Brooks % (Auto) 15.8 H (1.7-12.0) % Eos % (Auto) 0.2 L (0.9-7.0) % Baso % (Auto) 0.7 (0.2-2.0) % Neut # (Auto) 2.8 (1.4-6.5) 10^3/uL Lymph # (Auto) 0.8 L (1.2-3.8) 10^3/uL Brooks # (Auto) 0.7 (0.3-0.8) 10^3/uL Eos # (Auto) 0.0 (0.0-0.7) 10^3/uL Baso # (Auto) 0.0 (0.0-0.1) 10^3/uL Abs Immat Gran (auto) 0.01 (0.00-0.03) 10^3/uL Imm/Tot Granulo (auto) 0.2 (0.0-0.5) % Sodium 135 L (136-145) mmol/L Potassium 3.4 L (3.5-5.1) mmol/L Chloride 100 (98-107) mmol/L Carbon Dioxide 25.8 (21.0-32.0) mmol/L Anion Gap 12.6 BUN 13.0 (7.0-18.0) mg/dL Creatinine 0.96 (0.55-1.02) mg/dL Est GFR ( Amer) >60 (>=60 mL/min/1.73m^2) Est GFR (Non-Af Amer) >60 (>=60 mL/min/1.73m^2) BUN/Creatinine Ratio 13.5 Glucose 101 (74-106) mg/dL Calcium 8.2 L (8.5-10.1) mg/dL Total Bilirubin 0.5 (0.2-1.0) mg/dL AST 21 (15-37) U/L ALT 42 (14-59) U/L Alkaline Phosphatase 53 (46-116) U/L Troponin I High Sens 8.4 (4.0-51.3) pg/mL NT-Pro-B Natriuret Pep 237.0 (<=450.0) pg/mL Total Protein 7.3 (6.4-8.2) g/dL Albumin 3.5 (3.4-5.0) g/dL Globulin 3.8 g/dL Albumin/Globulin Ratio 0.9 Influenza Type A Ag Negative Influenza Type B Ag Negative SARS-CoV-2 Ag (CV2AG) Negative (NEGATIVE) Discharge Plan Discharge Chief Complaint: Upper Respiratory Infection Clinical Impression: Pneumonia, Dehydration Patient Disposition: Home, Self-Care Time of Disposition Decision: 21:11 Condition: Good Prescriptions / Home Meds: New azithromycin [Zithromax Z-Balwinder] 250 mg tablet See Rx Instructions .ROUTE .COMPLEX Qty: 6 0RF Rx Instructions: For 250 mg dose pack: take 500 mg today (day 1), then 250 mg for 4 days (days 2-5) No Action hydrocodone-acetaminophen 5-325 mg tablet 1 tab PO Q4H PRN (Reason: pain) Qty: 10 0RF atorvastatin 20 mg tablet 20 mg PO DAILY cyclobenzaprine 10 mg tablet 10 mg PO Q8H PRN (Reason: muscle spasm) furosemide 20 mg tablet 20 mg PO DAILY levothyroxine 75 mcg tablet 75 mcg PO DAILY Print Language: [place] Instructions: Dehydration (DC), Pneumonia (ED) Referrals: Lloyd Fenton PA [Primary Care Provider] - 1 week
[2024-05-06] MEDS: 0.9 % SODIUM CHLORIDE 1,000 ML 500 ML IV (21:15)
[2024-05-06] MEDS: AZITHROMYCIN 250 MG TABLET 500 MG PO (21:16)
[2024-05-06 22:35] VITALS: BP 134/50; PULSE 83; O2SAT 96
== END 2024-05-06 22:47 | disposition home or self-care (01) ==
PROVIDERS: Emergency Medicine; Emergency Provider Emergency Medicine; PCP Physician Assistant
DX: J18.9 Pneumonia, unspecified organism (principal); E86.0 Dehydration; R06.02 Shortness of breath; E66.01 Morbid (severe) obesity due to excess calories; E78.5 Hyperlipidemia, unspecified; E03.9 Hypothyroidism, unspecified; Z68.43 Body mass index [BMI] 50.0-59.9, adult; F17.200 Nicotine dependence, unspecified, uncomplicated; R50.9 Fever, unspecified
CPT/HCPCS: 36415; 71045; 80053; 83880; 84484; 85025; 87804; 87811; 93005; 99285